=== PATIENT | female | born 1960 | race Caucasian/White ===

== ENCOUNTER 2018-08-31 16:54 | Observation (INO) ==
[2018-08-31] MEDS ORDERED: ALBUTEROL SULFATE/IPRATROPIUM 3 ML NEBU IH ONE ×2 (17:00→17:03)
[2018-08-31] MEDS ORDERED: METHYLPREDNISOLONE SOD SUCC/PF 40 MG/ML VIAL IV ONE (17:03)
[2018-08-31] MEDS ORDERED: METHYLPREDNISOLONE SOD SUCC/PF 125 MG/2 ML VIAL ONE (17:09)
[2018-08-31 17:19] LABS: Hematocrit 37.9 % (37.0-47.0); Hemoglobin 12.4 gm/dL (12.5-16.0); Mean Cell Volume 87.7 fl (78-100); Mean Corpuscular Hemoglobin 28.7 pg (27-31); Mean Corpuscular Hgb Conc 32.7 g/dl (32-36); Mean Platelet Volume 9.1 fl (8-12.5); Neutrophil # 6.3 K/mm3 (1.3-6.0); Neutrophil % 66.6 % (42-75.0); Platelet Count 328 K/mm3 (150-450); Red Blood Count 4.32 M/mm3 (4.2-5.4); Red Cell Distribution Width 13.6 % (11.5-14.0); White Blood Count 9.5 K/mm3 (4.0-10.5)
[2018-08-31 17:54] LABS: ALT 19 U/L (19-67); AST 15 U/L (0-48); Albumin * 3.2 gm/dl (3.4-5.0); Alkaline Phosphatase * 90 U/L (50-170); Anion Gap 10.2 mmol/L (6.8-13.8); BNP * 450 pg/mL (5-205); BUN/Creatinine Ratio 13.7 (9.0-21.6); Bilirubin, Total 0.2 mg/dL (0.0-1.1); Blood Urea Nitrogen 13 mg/dL (3-23); Calcium * 8.7 mg/dL (7.9-10.9); Carbon Dioxide 32.1 mmol/L (24-32.6); Chloride 102 mmol/L (97-106); Glucose * 113 mg/dL (70-110); Magnesium 2.2 mg/dL (1.2-2.8); Potassium 4.3 mmol/L (3.4-4.6); Sodium 140 mmol/L (132-142); Total Protein 7.2 gm/dL (6.2-8.2); Troponin I Less than 0.017 ng/mL (0.00-0.10)
--- NOTE | 2018-08-31 18:16 | ERNOTE ---
Time Seen by Provider: 08/31/18 17:00 Stated Complaint: COUGH, BODY ACHES Presenting Symptoms:: cough, other - SOB Source: patient Exam Limitations: no limitations Immunizations: IMMUNIZATION HX Immunizations Up to Date Yes History of Influenza Vaccine No Allergies/Adverse Reactions: Allergies codeine Adverse Reaction (Mild, Verified 08/31/18 17:07) gi upset Home Medications: HOME MEDICATIONS aspirin 81 mg tablet,delayed release 81 mg PO DAILY 06/25/18 [Last Taken Unknown] budesonide-formoterol HFA 160 mcg-4.5 mcg/actuation aerosol inhaler 2 puff IH Q12H 06/25/18 [Last Taken Unknown] trazodone 100 mg tablet 100 mg PO HS tab 06/25/18 [Last Taken Unknown] albuterol sulfate HFA 90 mcg/actuation aerosol inhaler See Rx Instructions IH .COMPLEX PRN #18 g 07/21/18 [Last Taken Unknown] etodolac 400 mg tablet 400 mg PO BID #60 tab 07/22/18 [Last Taken Unknown] tiotropium bromide 18 mcg capsule with inhalation device 1 cap IH DAILY #30 inh 07/23/18 [Last Taken Unknown] - History of Present Ilness Narrative: Patient presents with progressive shortness of breath with wheezing and cough. She states this started 24-48 hours ago and at this point she rates it as being severe and she is having enormous difficulty catching her breath. Timing: getting worse Severity: severe Frequency/Possible Cause: Reports: occasional episodes Modifying Factors - Improves: Reports: nothing Modifying Factors - Worsens: Reports: other - Smoking Associated Symptoms: Reports: cough, shortness of breath, wheezing Review of Systems - Review of Systems Constitutional: Present: See HPI EYE: Present: no symptoms reported ENT: Present: no symptoms reported Respiratory: Present: See HPI Cardiology: Present: no symptoms reported Gastrointestinal/Abdominal: Present: no symptoms reported Genitourinary: Present: no symptoms reported Musculoskeletal: Present: no symptoms reported Skin: Present: no symptoms reported Neurological: Present: no symptoms reported Endocrine: Present: no symptoms reported Hematologic/Lymphatic: Present: no symptoms reported Psych: Present: no symptoms reported Medical History (Last Reviewed 08/31/18 @ 17:08 by Nova Cox RN) Elevated C-reactive protein (CRP) (Chronic) Elevated sed rate (Chronic) Headache disorder (Chronic) Onset Date: Unknown Tobacco abuse (Chronic) Onset Date: Unknown COPD (chronic obstructive pulmonary disease) (Chronic) Onset Date: Unknown Back pain (Chronic) Onset Date: Unknown Anxiety (Chronic) Onset Date: Unknown Depression (Chronic) Onset Date: Unknown Stress incontinence Onset Date: Unknown Surgical History: Surgical History (Last Reviewed 08/31/18 @ 17:08 by Nova Cox RN) H/O tubal ligation Onset Date: ~1988 Family History: Family History (Last Reviewed 08/31/18 @ 17:08 by Nova Cox RN) Mother Cancer melanoma Father , age 70's DVT (deep venous thrombosis) Alcoholism Varicose veins of both lower extremities Social History: Preferred Language Pashto Do you have any sabianism or No cultural preference? Smoking Status Current some day smoker Alcohol Use none Drug Use none (Last Updated 07/21/18 @ 11:18 by Rogelio Hussein DO) No Social History Section defined Physical Exam - Physical Exam General Appearance: Present: wd/wn, alert, severe distress Head Exam: Present: normal inspection, no evidence of injury Eye Exam: Normal inspection: bilateral, PERRL: bilateral Ears, Nose, Throat: Present: normal ENT inspection, H, normal pharynx Neck: Present: normal inspection, nontender Respiratory: Present: chest nontender, respiratory distress, accessory muscle use, rales - Right middle and right lower lobe, wheezing Cardiovascular/Chest: Present: no murmur, normal peripheral pulses, tachycardia Gastrointestinal/Abdominal: Present: normal bowel sounds, nontender, nondistended, soft, no organomegaly Rectal Exam: Present: deferred Back Exam: Present: normal inspection, normal range of motion Extremity Exam: Present: normal inspection, non-tender, no edema, normal range of motion Neurological Exam: Present: alert, oriented, normal mood/affect Skin Exam: Present: normal color, warm/dry Lymphatic Exam: Present: no adenopathy ED Progress - Results and Orders Patient's Lab Results:: I have reviewed the patient's lab results. - Vital Signs Patient's Vital Signs:: I have reviewed the patient's vital signs. Vital Signs: Vital Signs 08/31/18 17:04 08/31/18 17:09 08/31/18 17:32 Temperature 36.5 C Pulse Rate 133 H 104 H 99 Respiratory Rate 25 H 20 Blood Pressure 189/70 H O2 Sat by Pulse Oximetry 80 L 92 L - EKG EKG: other - Sinus tachycardia EKG read: Reviewed by me - X-Ray X-Ray #1 X-Ray: chest Interpretation: Reviewed by me - Progress/Reassessment Chief Complaint: Upper Respiratory Symptoms Progress:: Re-examined Progress Note-Subjective: 08/31/18 18:14 Patient is marginally improved as long as we keep her on oxygen. Plan - Plan Plan: I discussed the case with the patient as well as Dr. Bonilla and we all agreed that the patient needs to be admitted for IV antibiotics and relatively aggressive pulmonary toilet. Departure Clinical Impression: Hypoxia Pneumonia Qualifiers: Pneumonia type: due to unspecified organism Laterality: right Lung location: lower lobe of lung Qualified Code(s): J18.1 - Lobar pneumonia, unspecified organism - Departure Disposition: Still a patient Condition: Fair
[2018-08-31] MEDS ORDERED: ALBUTEROL SULFATE 2.5 MG/0.5 ML VIAL.NEB IH ONE ×2 (18:18→19:27)
[2018-08-31] MEDS ORDERED: IBUPROFEN 800 MG TABLET PO ONE (18:30)
[2018-08-31] MEDS ORDERED: IBUPROFEN 400 MG TABLET ONE (18:31)
[2018-08-31] MEDS ORDERED: ALBUTEROL SULFATE/IPRATROPIUM 3 ML NEBU IH PRN (19:29)
--- NOTE | 2018-08-31 19:32 | HP ---
Chief Complaint - Chief Complaint Date of Service: 08/31/18 Time of Service: 19:11 Chief Complaint: shortness of breath History of Present Illness: Patient with PMHx of COPD presented to the ED today with shortness of breath and cough for a few days. She doesn't think she has had fevers, but hasn't checked her temp. She has a productive cough at baseline, but it has been productive of green sputum the past couple of days. She has felt nauseated and her appetite decreased. She has wheezing at baseline, but that is increased currently. In the ED, her work of breathing improved with oxygen. She does not use oxygen at baseline, and has never been hospitalized for her breathing. Denies chest pain and lower extremity swelling. Medical History (Last Reviewed 08/31/18 @ 17:08 by Nova Cox RN) Elevated C-reactive protein (CRP) (Chronic) Elevated sed rate (Chronic) Headache disorder (Chronic) Onset Date: Unknown Tobacco abuse (Chronic) Onset Date: Unknown COPD (chronic obstructive pulmonary disease) (Chronic) Onset Date: Unknown Back pain (Chronic) Onset Date: Unknown Anxiety (Chronic) Onset Date: Unknown Depression (Chronic) Onset Date: Unknown Stress incontinence Onset Date: Unknown Surgical History: Surgical History (Last Reviewed 08/31/18 @ 17:08 by Nova Cox RN) H/O tubal ligation Onset Date: ~1988 Family History: Family History (Last Reviewed 08/31/18 @ 17:08 by Nova Cox RN) Mother Cancer melanoma Father , age 70's DVT (deep venous thrombosis) Alcoholism Varicose veins of both lower extremities Social History: Preferred Language Afghan Do you have any temple or No cultural preference? Smoking Status Current some day smoker Alcohol Use none Drug Use none (Last Updated 07/21/18 @ 11:18 by Rogelio Hussein DO) No Social History Section defined Review Of Systems (GEN) - Review of Systems Generalized/Overall Review: Absent: Fever Respiratory: Present: Cough, Shortness of Breath, Wheezing Cardiac: Absent: Chest Pain, Edema, Syncope Abdominal: Present: Nausea, Other - loose stools today. Absent: Vomiting Genitourinary: Present: Other - incontinence with cough. Absent: Burning, Urgency Skin: Present: No Symptoms Reported Immunizations: IMMUNIZATION HX Immunizations Up to Date Yes History of Influenza Vaccine No Allergies/Adverse Reactions: Allergies Allergy/AdvReac Type Severity Reaction Status Date / Time codeine AdvReac Mild gi upset Verified 08/31/18 17:07 Home Medications: HOME MEDICATIONS aspirin 81 mg tablet,delayed release 81 mg PO DAILY 06/25/18 [Last Taken Unknown] budesonide-formoterol HFA 160 mcg-4.5 mcg/actuation aerosol inhaler 2 puff IH Q12H 06/25/18 [Last Taken Unknown] trazodone 100 mg tablet 100 mg PO HS tab 06/25/18 [Last Taken Unknown] albuterol sulfate HFA 90 mcg/actuation aerosol inhaler See Rx Instructions IH .COMPLEX PRN #18 g 07/21/18 [Last Taken Unknown] etodolac 400 mg tablet 400 mg PO BID #60 tab 07/22/18 [Last Taken Unknown] tiotropium bromide 18 mcg capsule with inhalation device 1 cap IH DAILY #30 inh 07/23/18 [Last Taken Unknown] Vortioxetine Hydrobromide [Trintellix] 20 mg PO DAILY 08/31/18 [Last Taken 08/31/18 09:00 20mg] Exam - Exam Vital Signs: Vital Signs - Last Taken Temp 36.5 C 08/31/18 17:04 Pulse 99 08/31/18 18:00 Resp 21 H 08/31/18 18:00 BP 164/86 H 08/31/18 18:00 Pulse Ox 92 L 08/31/18 18:00 Constitutional: Present: Oriented x3, Cooperative Respiratory: Present: decreased breath sounds, accessory muscle use - mild increased work of breathing, wheezing Cardiovascular/Chest: Present: regular rate, rhythm, no edema Peripheral Pulses: radial (R): 2+ Abdomen: Present: Normal bowel sounds, soft, nontender Extremity: Absent: lower extremity edema Appearance: Present: appropriate appearance, appropriate insight Eye contact: Present: cooperative Diagnostic Studies: Abnormal Lab Results 08/31/18 08/31/18 08/31/18 Range/Units 17:02 17:10 17:10 Hgb 12.4 L (12.5-16.0) gm/dL Immature Gran % (Auto) 1.10 H (0.001-0.429) % Immature Gran # (Auto) 0.10 H (0.000-0.0310) K/mm3 Neutrophils # 6.3 H (1.3-6.0) K/mm3 pO2 63.0 L (83.0-108.0) mmHg Total CO2 28.3 H (19.0-24.0) mmol/L Base Excess 3.6 H (-2.0-3.0) mmol/L ABG pH 7.48 H (7.35-7.45) ABG O2 Sat (Measured) 93.6 L (94.0-98.0) % Random Glucose 113 H (70-110) mg/dL B-Natriuretic Peptide 450 H (5-205) pg/mL Albumin 3.2 L (3.4-5.0) gm/dl Laboratory Results WBC 9.5 K/mm3 (4.0-10.5) 08/31/18 17:10 RBC 4.32 M/mm3 (4.2-5.4) 08/31/18 17:10 Hgb 12.4 gm/dL (12.5-16.0) L 08/31/18 17:10 Hct 37.9 % (37.0-47.0) 08/31/18 17:10 MCV 87.7 fl (78-100) 08/31/18 17:10 MCH 28.7 pg (27-31) 08/31/18 17:10 MCHC 32.7 g/dl (32-36) 08/31/18 17:10 RDW 13.6 % (11.5-14.0) 08/31/18 17:10 Plt Count 328 K/mm3 (150-450) 08/31/18 17:10 MPV 9.1 fl (8-12.5) 08/31/18 17:10 Immature Gran % (Auto) 1.10 % (0.001-0.429) H 08/31/18 17:10 Immature Gran # (Auto) 0.10 K/mm3 (0.000-0.0310) H 08/31/18 17:10 Neutrophils % 66.6 % (42-75.0) 08/31/18 17:10 Lymphocytes % 22.6 % (20-51) 08/31/18 17:10 Monocytes % 7.2 % (0.0-9) 08/31/18 17:10 Eosinophils % 2.2 % (0.0-3.0) 08/31/18 17:10 Basophils % 0.3 % (0.0-1.0) 08/31/18 17:10 Nucleated RBC % 0.0 k/mm3 (0-1) 08/31/18 17:10 Neutrophils # 6.3 K/mm3 (1.3-6.0) H 08/31/18 17:10 Lymphocytes # 2.14 k/mm3 (1.5-3.5) 08/31/18 17:10 Monocytes # 0.7 k/mm3 (0.0-1.0) 08/31/18 17:10 Eosinophils # 0.2 k/mm3 (0.0-0.7) 08/31/18 17:10 Absolute Basophils 0.0 k/mm3 (0.0-0.1) 08/31/18 17:10 pCO2 37.6 mmHg (32.0-45.0) 08/31/18 17:02 pO2 63.0 mmHg (83.0-108.0) L 08/31/18 17:02 HCO3 27.2 mmol/L (21.0-28.0) 08/31/18 17:02 Total CO2 28.3 mmol/L (19.0-24.0) H 08/31/18 17:02 Base Excess 3.6 mmol/L (-2.0-3.0) H 08/31/18 17:02 ABG pH 7.48 (7.35-7.45) H 08/31/18 17:02 ABG O2 Sat (Measured) 93.6 % (94.0-98.0) L 08/31/18 17:02 Sodium 140 mmol/L (132-142) 08/31/18 17:10 Plasma Sodium 140 mmol/L (130-142) 08/31/18 17:10 Potassium 4.3 mmol/L (3.4-4.6) 08/31/18 17:10 Chloride 102 mmol/L (97-106) 08/31/18 17:10 Carbon Dioxide 32.1 mmol/L (24-32.6) 08/31/18 17:10 Anion Gap 10.2 mmol/L (6.8-13.8) 08/31/18 17:10 BUN 13 mg/dL (3-23) 08/31/18 17:10 Creatinine 0.95 mg/dL (0.4-1.4) 08/31/18 17:10 Est GFR (Non-Af Amer) 64 mL/min (60-130) 08/31/18 17:10 BUN/Creatinine Ratio 13.7 (9.0-21.6) 08/31/18 17:10 Random Glucose 113 mg/dL (70-110) H 08/31/18 17:10 Calcium 8.7 mg/dL (7.9-10.9) 08/31/18 17:10 Calcium Adj for Albumin 9.0 mg/dL (8.4-10.2) 08/31/18 17:10 Magnesium 2.2 mg/dL (1.2-2.8) 08/31/18 17:10 Total Bilirubin 0.2 mg/dL (0.0-1.1) 08/31/18 17:10 AST 15 U/L (0-48) 08/31/18 17:10 ALT 19 U/L (19-67) 08/31/18 17:10 Alkaline Phosphatase 90 U/L (50-170) 08/31/18 17:10 Troponin I Less than 0.017 ng/mL (0.00-0.10) 08/31/18 17:10 B-Natriuretic Peptide 450 pg/mL (5-205) H 08/31/18 17:10 Total Protein 7.2 gm/dL (6.2-8.2) 08/31/18 17:10 Albumin 3.2 gm/dl (3.4-5.0) L 08/31/18 17:10 Assessment/Plan - Assessment/Plan (1) Shortness of breath Assessment: Ddx includes COPD exacerbation, pneumonia. COPDe most likely. She is afebrile, and WBC not elevated. Official CXR read pending, but pneumonia possible. Rocephin and azithromycin started in the ED, and will continue. She received a dose of 125 mg solumedrol. PRN duoneb treatments q4h prn. Will also continue her home spiriva and symbicort. Discussed the importance of tobacco cessation. She is oxygenating in the low 90's on 2L via [place], and will wean as tolerated. Problem: Acute (2) Anxiety Assessment: Continue home trintellix. Problem: Chronic (3) Depression Assessment: Continue home trintellix and trazodone. Problem: Chronic (4) Back pain Assessment: Continue patient's home etodolac. Problem: Chronic Qualifiers: (5) Dry eye Assessment: OK for patient to use home eye drops. Problem: Chronic
[2018-08-31] MEDS ORDERED: AZITHROMYCIN 250 MG TABLET PO ONE (20:30)
[2018-08-31] MEDS ORDERED: traZODone HCL 50 MG TABLET PO SCH (21:00)
[2018-08-31] MEDS: FLUTICASONE/SALMETEROL 14 PUFF DISK.W.DEV IH SCH (21:45)
[2018-09-01] MEDS ORDERED: ACETAMINOPHEN 325 MG TABLET PO PRN (05:36)
[2018-09-01] MEDS ORDERED: ALBUTEROL SULFATE 2.5 MG/0.5 ML VIAL.NEB IH PRN (06:29)
[2018-09-01] MEDS: FLUTICASONE/SALMETEROL 14 PUFF DISK.W.DEV IH SCH (08:40)
[2018-09-01] MEDS ORDERED: TIOTROPIUM BROMIDE 5 CAP INHALER IH SCH (09:00)
[2018-09-01] MEDS ORDERED: AZITHROMYCIN 250 MG TABLET PO SCH (09:00)
[2018-09-01] MEDS ORDERED: NICOTINE 21 MG PATC TD SCH (09:45)
--- NOTE | 2018-09-01 13:02 | DS ---
(1) Pneumonia Problem: Acute Qualifiers: Pneumonia type: due to unspecified organism Laterality: right Lung location: lower lobe of lung Qualified Code(s): J18.1 - Lobar pneumonia, unspecified organism (2) Hypoxia Problem: Resolved (3) Tobacco abuse Problem: Chronic (4) COPD (chronic obstructive pulmonary disease) Problem: Chronic Qualifiers: Emphysema type: panlobular Description of Stay: Leslie Colón is a 58-year-old female who was admitted through the emergency room because of respiratory distress. The chest x-ray shows bilateral perihilar infiltrates. She has a productive green sputum. She required oxygen in the emergency room and because there were not able to improve her oxygenation in the ER she was admitted for observation status. Mrs. Colón has a baseline of advanced COPD. She was started on IV Rocephin, oral azithromycin, and IV Solu-Medrol. This morning she is considerably improved although still coughing and gets dyspneic with exertion. She was walked in the [place] with no supplemental oxygen and her saturations stayed between 93 and 97%. Her admission lab showed a normal white count and differential and chemistries were unremarkable. Her PCO2 was 28. She was also started on a nicotine 21 g per hour patch today. She is instructed that she cannot smoke and wear the patch as it is too dangerous. She expresses understanding. She is breathing easier at noon today and feels that she can go home. Her disposition is improved. Her prognosis is fair. She will be discharged to finish her Zithromax for 4 more days, Ceftin twice a day for 10 more days, and prednisone 10 mg per tapering schedule. She is to follow with me in the office in 2 weeks. Procedures Performed: none Results and Findings: Lab Pending Results 08/31/18 17:02: pCO2 37.6, pO2 63.0 L, HCO3 27.2, Total CO2 28.3 H, Base Excess 3.6 H, ABG pH 7.48 H, ABG O2 Sat (Measured) 93.6 L 08/31/18 17:10: WBC 9.5, RBC 4.32, Hgb 12.4 L, Hct 37.9, MCV 87.7, MCH 28.7, MCHC 32.7, RDW 13.6, Plt Count 328, MPV 9.1, Immature Gran % (Auto) 1.10 H, Immature Gran # (Auto) 0.10 H, Neutrophils % 66.6, Lymphocytes % 22.6, Monocytes % 7.2, Eosinophils % 2.2, Basophils % 0.3, Nucleated RBC % 0.0, Neutrophils # 6.3 H, Lymphocytes # 2.14, Monocytes # 0.7, Eosinophils # 0.2, Absolute Basophils 0.0 08/31/18 17:10: Sodium 140, Plasma Sodium 140, Potassium 4.3, Chloride 102, Carbon Dioxide 32.1, Anion Gap 10.2, BUN 13, Creatinine 0.95, Est GFR (Non-Af Amer) 64, BUN/Creatinine Ratio 13.7, Random Glucose 113 H, Calcium 8.7, Calcium Adj for Albumin 9.0, Magnesium 2.2, Total Bilirubin 0.2, AST 15, ALT 19, Alkaline Phosphatase 90, Troponin I Less than 0.017, B-Natriuretic Peptide 450 H, Total Protein 7.2, Albumin 3.2 L Discharge Location: Home Disposition: Home self-care Condition: Fair Face to Face Encounter completed per [facility] Guidelines: No Discharge Activity: Activity as tolerated Discharge Diet: General/regular food Referrals: Rogelio Hussein DO [Primary Care Provider] - Problem Oriented Discharge Instructions to Patient/Family: Community-Acquired Pneumonia, Adult, [id number] Additional Patient Instructions (free text): Discontinue smoking and stay out of secondary smoke. Use the nicotine patches to stop smoking but do not smoke and wear the patch. Return to the emergency room if respiratory distress reoccurs. F/U with FridaySeptember 07 @ 3:30 pm. Prescriptions (Any new or edited meds): Azithromycin [Zithromax] 250 mg PO DAILY #4 tablet Cefuroxime Axetil [Ceftin] 500 mg PO BID #20 tab predniSONE [Prednisone] 2 tab PO BID #30 tab Complete Home Medications List: Complete Home Medication List: aspirin 81 mg tablet,delayed release 81 mg PO DAILY 06/25/18 budesonide-formoterol HFA 160 mcg-4.5 mcg/actuation aerosol inhaler 2 puff IH Q12H 06/25/18 trazodone 100 mg tablet 100 mg PO HS tab 06/25/18 albuterol sulfate HFA 90 mcg/actuation aerosol inhaler See Rx Instructions IH .COMPLEX PRN #18 g 07/21/18 etodolac 400 mg tablet 400 mg PO BID #60 tab 07/22/18 tiotropium bromide 18 mcg capsule with inhalation device 1 cap IH DAILY #30 inh 07/23/18 Vortioxetine Hydrobromide [Trintellix] 20 mg PO DAILY 08/31/18 Acetaminophen [Tylenol] 325 mg PO Q6H PRN tablet 09/01/18 Albuterol Sulfate [Albuterol Sulfate 2.5 MG/0.5ML] 2.5 mg IH Q4H PRN vial.neb 09/01/18 Azithromycin [Zithromax] 250 mg PO DAILY tablet 09/01/18 Azithromycin [Zithromax] 250 mg PO DAILY #4 tablet 09/01/18 Cefuroxime Axetil [Ceftin] 500 mg PO BID #20 tab 09/01/18 Nicotine [Nicoderm] 21 mg TD Q24H patch.td24 09/01/18 predniSONE [Prednisone] 2 tab PO BID #30 tab 09/01/18
[2018-09-01 14:49] VITALS: BP 158/72
[2018-09-01] MEDS ORDERED: FLUTICASONE/SALMETEROL 14 PUFF DISK.W.DEV IH SCH (21:00)
== END 2018-09-01 15:08 | disposition home or self-care (01) ==
LOC: MS 16:54 → ER 16:54 → MS 18:56
PROVIDERS: ADMIT Family Medicine; ATTEND Family Medicine
DX: J17 Pneumonia in diseases classified elsewhere; H04.123 Dry eye syndrome of bilateral lacrimal glands; F17.210 Nicotine dependence, cigarettes, uncomplicated; M54.9 Dorsalgia, unspecified; R09.02 Hypoxemia; J44.1 Chronic obstructive pulmonary disease with (acute) exacerbation; F41.8 Other specified anxiety disorders; J18.1 Lobar pneumonia, unspecified organism
CPT/HCPCS: 36415; 36600; 71020; 71046; 80053; 82803; 83519; 83735; 83880; 84484; 85025; 87040; 93005; 94640; 94664; 96365; 96375; 99285; G0378

== ENCOUNTER 2019-02-03 09:37 | Observation (INO) ==
[2019-02-03] MEDS ORDERED: METHYLPREDNISOLONE SOD SUCC/PF 125 MG/2 ML VIAL IV ONE (09:51)
[2019-02-03] MEDS ORDERED: ALBUTEROL SULFATE 2.5 MG/0.5 ML VIAL.NEB IH ONE (09:51)
--- NOTE | 2019-02-03 09:52 | ERNOTE ---
Dyspnea - General Presenting Symptoms: shortness of breath Time Seen by Provider: 02/03/19 09:40 Source: patient Exam Limitations: no limitations - Immun/Allergies/Home Medications Immunizations: IMMUNIZATION HX Immunizations Up to Date Yes History of Influenza Vaccine No Allergies/Adverse Reactions: Allergies codeine Adverse Reaction (Mild, Verified 02/03/19 09:55) gi upset Home Medications: HOME MEDICATIONS aspirin 81 mg tablet,delayed release 81 mg PO DAILY 06/25/18 [Last Taken Unknown] albuterol sulfate HFA 90 mcg/actuation aerosol inhaler See Rx Instructions IH .COMPLEX PRN #18 g 07/21/18 [Last Taken Unknown] Acetaminophen [Tylenol] 325 mg PO Q6H PRN tab 09/01/18 [Last Taken Unknown] Albuterol Sulfate [Albuterol Sulfate 2.5 MG/0.5ML] 2.5 mg INHALATION Q4H PRN vial.neb 09/01/18 [Last Taken Unknown] budesonide-formoterol HFA 160 mcg-4.5 mcg/actuation aerosol inhaler 2 puff IH Q12H #10.2 g 09/09/18 [Last Taken Unknown] vortioxetine 20 mg tablet 20 mg PO DAILY #30 tab 10/02/18 [Last Taken Unknown] etodolac 400 mg tablet 400 mg PO BID #60 tab 11/30/18 [Last Taken Unknown] aripiprazole 10 mg tablet 10 mg PO DAILY #30 tab 12/22/18 [Last Taken Unknown] tiotropium bromide 18 mcg capsule with inhalation device 1 cap IH DAILY #30 inh 01/27/19 [Last Taken Unknown] eszopiclone 1 mg tablet 1 mg PO HS #14 tab 01/28/19 [Last Taken Unknown] - History of Present Illness Narrative: Patient has a history of COPD, used to smoke 3ppd (recently cut down to 1packer per week) over the last three weeks she has had increasing shortness of breath and cough with green sputum, no chest pain, initial fever and chills She was seen in the PCP office, initial O2 sat in mid 70's, received a breathing treatment and was send to the ER, initial O2sats here 81% Severity: moderate Treatment PHYSICAL THERAPY TECHNICIAN: by patient, albuterol - MDI only Initiating event: Reports: upper resp illness. Denies: out of meds, exposure to smoke Frequency of episodes: Reports: occassional episodes Modifying Factors - (Improves): Reports: rest Modifying Factors (Worsens): Reports: activity Associated Symptoms-Dyspnea: Reports: fever/chills, cough, wheezing. Denies: chest pain/discomfort Prior Treatment: Denies: recently seen, currently on antibiotics Review of Systems - Review of Systems Constitutional: Present: fever, chills, malaise ENT: Absent: nose congestion, sore throat Respiratory: Present: shortness of breath, cough Cardiology: Absent: chest pain Gastrointestinal/Abdominal: Absent: nausea, vomiting, abdominal pain Genitourinary: Present: no symptoms reported Musculoskeletal: Absent: back pain Skin: Absent: rash Neurological: Absent: headache Medical History (Last Reviewed 02/03/19 @ 11:20 by Chanell Jackson MD) Insomnia disorder, with non-sleep disorder mental comorbidity, persistent (Chronic) Oral candidiasis (Acute) COPD (chronic obstructive pulmonary disease) with acute bronchitis (Chronic) Major depressive disorder, recurrent episode, moderate (Acute) Low back pain (Acute) Leg pain, left (Acute) Elevated C-reactive protein (CRP) (Chronic) Elevated sed rate (Chronic) Headache disorder (Chronic) Onset Date: Unknown Tobacco abuse (Chronic) Onset Date: Unknown COPD (chronic obstructive pulmonary disease) (Chronic) Onset Date: Unknown Back pain (Chronic) Onset Date: Unknown Anxiety (Chronic) Onset Date: Unknown Depression (Chronic) Onset Date: Unknown Stress incontinence Onset Date: Unknown Surgical History: Surgical History (Last Reviewed 02/03/19 @ 11:20 by Chanell Jackson MD) H/O tubal ligation Onset Date: ~1988 Family History: Family History (Last Reviewed 02/03/19 @ 09:29 by Mini Ashley LPN) Mother Cancer melanoma Father , age 70's DVT (deep venous thrombosis) Alcoholism Varicose veins of both lower extremities Social History: Preferred Language Kinyarwanda Smoking Status Current every day smoker (Last Reviewed 02/03/19 @ 09:29 by Mini Ashley LPN) No Social History Section defined Physical Exam - Physical Exam General Appearance: Present: wd/wn, alert, mild distress Eye Exam: Normal inspection: bilateral Ears, Nose, Throat: Present: normal pharynx Neck: Absent: lymphadenopathy (R), lymphadenopathy (L) Respiratory: Present: respiratory distress - increased effort, decreased breath sounds - severely decreased, expiration (prolonged), wheezing Cardiovascular/Chest: Present: regular rate, rhythm, no murmur Gastrointestinal/Abdominal: Present: nontender, nondistended, soft Extremity Exam: Present: no edema Neurological Exam: Present: alert, oriented, normal mood/affect Skin Exam: Present: normal color, warm/dry Progress - Results and Orders Patient's Lab Results:: I have reviewed the patient's lab results. - Vital Signs Patient's Vital Signs:: I have reviewed the patient's vital signs. - EKG EKG #1 EKG: NSR, other - occasional PVCs EKG read: Interp. by me - X-Ray X-Ray #1 X-Ray: chest - hyperinflated, no acute Interpretation: Reviewed by me - Progress/Reassessment Progress Note-Subjective: 02/03/19 10:33 discussed lab results, feels better on O2 02/03/19 11:01 patient feeling better with oxygen and after second neb treatment 02/03/19 11:12 discussed with nighat Powell to admit for observation, start rocephin and zithromas Departure Clinical Impression: COPD exacerbation, Hypoxemia - Departure Disposition: Still a patient Condition: Stable
[2019-02-03 10:10] LABS: Hematocrit 38.7 % (37.0-47.0); Hemoglobin 12.6 gm/dL (12.5-16.0); Mean Corpuscular Hgb Conc 32.6 g/dl (32-36); Mean Platelet Volume 9.8 fl (8-12.5); Neutrophil # 9.6 K/mm3 (1.3-6.0); Neutrophil % 80.9 % (42-75.0); Platelet Count 315 K/mm3 (150-450); Red Blood Count 4.35 M/mm3 (4.2-5.4); Red Cell Distribution Width 12.7 % (11.5-14.0); White Blood Count 11.8 K/mm3 (4.0-10.5)
[2019-02-03 10:22] LABS: Troponin I Less than 0.017 ng/mL (0.00-0.10)
[2019-02-03 10:23] LABS: ALT 33 U/L (19-67); AST 21 U/L (0-48); Albumin * 3.1 gm/dl (3.4-5.0); Alkaline Phosphatase * 130 U/L (50-170); Anion Gap 12.3 mmol/L (6.8-13.8); BNP * 170 pg/mL (5-205); Bilirubin, Total 0.3 mg/dL (0.0-1.1); Blood Urea Nitrogen 7 mg/dL (3-23); Ca. Corrected For Albumin 9.4 mg/dL (8.4-10.2); Carbon Dioxide 31.6 mmol/L (24-32.6); Chloride 98 mmol/L (97-106); Glucose * 161 mg/dL (70-110); Potassium 3.9 mmol/L (3.4-4.6); Sodium 138 mmol/L (132-142); Total Protein 7.5 gm/dL (6.2-8.2)
[2019-02-03] MEDS ORDERED: ALBUTEROL SULFATE 2.5 MG/0.5 ML VIAL.NEB IH PRN (11:21)
[2019-02-03] MEDS ORDERED: DEXTROSE 5 % IN WATER 100 ML BAG IV ONE (11:56)
[2019-02-03] MEDS: AZITHROMYCIN 250 MG TABLET PO SCH (11:58)
[2019-02-03] MEDS ORDERED: ACETAMINOPHEN 325 MG TABLET PO PRN (13:15)
[2019-02-03] MEDS ORDERED: ALBUTEROL SULFATE 200 PUFF INHALER IH PRN (13:16)
[2019-02-03] MEDS ORDERED: ALBUTEROL SULFATE/IPRATROPIUM 3 ML NEBU IH ONE (13:58)
[2019-02-03] MEDS: ALBUTEROL SULFATE 2.5 MG/0.5 ML VIAL.NEB IH PRN (14:14)
[2019-02-03] MEDS: ALBUTEROL SULFATE/IPRATROPIUM 3 ML NEBU IH SCH ×2 (14:14→18:05)
[2019-02-03 14:21] LABS: Urine Bilirubin Negative (NEGATIVE); Urine Blood 25 /ul (NEGATIVE); Urine Ketone Negative (NEGATIVE); Urine Nitrite Negative (NEGATIVE); Urine Protein Negative (NEGATIVE); Urine Urobilinogen Normal (NORMAL)
[2019-02-03 14:29] LABS: Urine Appearance Clear (CLEAR); Urine Color Yellow
[2019-02-03 14:30] LABS: Urine Bacteria None Seen; Urine RBC None Seen /hpf (0-5); Urine WBC TRACE /hpf (0-5)
[2019-02-03] MEDS: ASPIRIN 81 MG TABLET.DR PO SCH (15:07)
[2019-02-03] MEDS: ARIPiprazole 10 MG TABLET PO SCH (15:07)
[2019-02-03] MEDS: TIOTROPIUM BROMIDE 5 CAP INHALER IH SCH (15:09)
[2019-02-03] MEDS: BUDESONIDE 0.5 MG/2 ML VIAL.NEB IH SCH (18:06)
[2019-02-03] MEDS: FORMOTEROL FUMARATE 20 MCG/2 ML VIAL IH SCH (18:07)
[2019-02-03] MEDS: BENZONATATE 100 MG CAPSULE PO PRN (18:54)
--- NOTE | 2019-02-03 19:43 | HP ---
Chief Complaint - Chief Complaint Date of Service: 02/03/19 Time of Service: 12:00 Chief Complaint: Shortness of breath, hypoxemia History of Present Illness: Mrs. Colón is a 58-year-old female with a long-standing history of COPD and nicotine abuse. She presented to my office this morning very labored breathing and ashen in color with O2 saturation of 71% on room air. I gave her an albuterol nebulizer treatment and improved her oxygen saturation to 81%. She was then taken via wheelchair to the emergency room where she was cared for by Dr. Wright and was subsequently admitted to the hospital. The workup in the emergency room included a chest x-ray which did not show any evidence of pneumonia or congestive failure. Her blood count is essentially normal. This appears to be an acute exacerbation of COPD with moderate hypoxemia. She has had IV steroids, IV antibiotics, and another breathing treatment and placed on oxygen at 2 L nasal cannula. Her blood gases were normal. The patient was much more comfortable by noon when she was admitted to the medical floor. She was able to speak in full sentences again and was able to eat her lunch. She has continued to do well this afternoon. She does not have home oxygen and does not have a nebulizer at home. Medical History (Last Reviewed 02/03/19 @ 12:38 by Clarissa Ling RN) Insomnia disorder, with non-sleep disorder mental comorbidity, persistent (Chronic) Oral candidiasis (Acute) COPD (chronic obstructive pulmonary disease) with acute bronchitis (Chronic) Major depressive disorder, recurrent episode, moderate (Acute) Low back pain (Acute) Leg pain, left (Acute) Elevated C-reactive protein (CRP) (Chronic) Elevated sed rate (Chronic) Headache disorder (Chronic) Onset Date: Unknown Tobacco abuse (Chronic) Onset Date: Unknown COPD (chronic obstructive pulmonary disease) (Chronic) Onset Date: Unknown Back pain (Chronic) Onset Date: Unknown Anxiety (Chronic) Onset Date: Unknown Depression (Chronic) Onset Date: Unknown Stress incontinence Onset Date: Unknown Surgical History: Surgical History (Last Reviewed 02/03/19 @ 12:38 by Clarissa Ling RN) H/O tubal ligation Onset Date: ~1988 Family History: Family History (Last Reviewed 02/03/19 @ 12:38 by Clarissa Ling RN) Mother Cancer melanoma Father , age 70's DVT (deep venous thrombosis) Alcoholism Varicose veins of both lower extremities Social History: Patient Lives/Resources Home Utilized Preferred Language Kazakh Do you have any gnosticism or No cultural preference? Smoking Status Current every day smoker Have you smoked in the past 12 Yes months Alcohol Use none (Last Updated 02/03/19 @ 17:56 by Rogelio Hussein DO) No Social History Section defined Review Of Systems (GEN) - Review of Systems Generalized/Overall Review: Present: Weakness, Fever, Malaise, Fatigue. Absent: Chills EENTM: Present: No Symptoms Reported Respiratory: Present: Shortness of Breath, Wheezing Cardiac: Present: No Symptoms Reported Abdominal: Present: No Symptoms Reported, Bright blood from rectum Musculoskeletal: Present: No Symptoms Reported Neurological: Present: No Symptoms Reported Skin: Present: No Symptoms Reported Endocrine: Present: No Symptoms Reported Misc: All systems neg except as marked Immunizations: IMMUNIZATION HX Immunizations Up to Date Yes History of Influenza Vaccine No Allergies/Adverse Reactions: Allergies Allergy/AdvReac Type Severity Reaction Status Date / Time codeine AdvReac Mild gi upset Verified 02/03/19 12:38 Home Medications: HOME MEDICATIONS aspirin 81 mg tablet,delayed release 81 mg PO DAILY 06/25/18 [Last Taken Unknown] albuterol sulfate HFA 90 mcg/actuation aerosol inhaler See Rx Instructions IH .COMPLEX PRN #18 g 07/21/18 [Last Taken Unknown] RX: Acetaminophen [Tylenol] 325 mg PO Q6H PRN tab 09/01/18 [Last Taken Unknown] RX: Albuterol Sulfate [Albuterol Sulfate 2.5 MG/0.5ML] 2.5 mg INHALATION Q4H PRN vial.neb 09/01/18 [Last Taken Unknown] budesonide-formoterol HFA 160 mcg-4.5 mcg/actuation aerosol inhaler 2 puff IH Q12H #10.2 g 09/09/18 [Last Taken Unknown] vortioxetine 20 mg tablet 20 mg PO DAILY #30 tab 10/02/18 [Last Taken Unknown] etodolac 400 mg tablet 400 mg PO BID #60 tab 11/30/18 [Last Taken Unknown] aripiprazole 10 mg tablet 10 mg PO DAILY #30 tab 12/22/18 [Last Taken Unknown] tiotropium bromide 18 mcg capsule with inhalation device 1 cap IH DAILY #30 inh 01/27/19 [Last Taken Unknown] eszopiclone 1 mg tablet 1 mg PO HS #14 tab 01/28/19 [Last Taken Unknown] Exam - Exam Vital Signs: Vital Signs - Last Taken Temp 36.6 C 02/03/19 18:57 Pulse 118 H 02/03/19 18:57 Resp 24 H 02/03/19 18:57 BP 137/72 02/03/19 18:57 Pulse Ox 91 L 02/03/19 18:57 Constitutional: Present: Alert, Oriented x3, Cooperative, Well developed, Well nourished, No distress, Moderate distress ENT Exam: Present: normal ENT inspection, hearing grossly normal, pharynx normal, TMs normal Eye Exam: bilateral eye: normal inspection, PERRL, EOMI Neck: Present: non-tender, limited range of motion, lymphadenopathy (L) Back Exam: Present: normal inspection, no CVA tenderness, no vertebral tenderness Respiratory: Present: chest non-tender, respiratory distress, decreased breath sounds, accessory muscle use, rhonchi, wheezing, expiration (prolonged) Cardiovascular/Chest: Present: normal peripheral pulses, regular rate, rhythm, no chest tenderness, no edema, no gallop, no JVD, no murmur, no rub Peripheral Pulses: carotid (R): 2+, carotid (L): 2+, radial (R): 2+, radial (L): 2+ Abdomen: Present: Normal bowel sounds, soft, nontender, nondistended, no rebound tenderness, no hepatospenomegaly, no masses /Rectal: Present: Exam deferred Extremity: Present: normal range of motion, non-tender, normal inspection, no pedal edema, no calf tenderness, normal capillary refill Skin Exam: Present: normal color, warm/dry, other - Ashened color when hypoxemic but normal in color after oxygen was in the 90% range. 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, normal cerebellar test, no motor/sensory deficits, alert, normal mood/affect, oriented x 3 Appearance: Present: appropriate appearance, appropriate insight, neat, no memory impairment Eye contact: Present: cooperative, good eye contact, normal speech Thoughts: Present: normal thought pattern, no apparent hallucination Diagnostic Studies: Abnormal Lab Results 02/03/19 02/03/19 02/03/19 Range/Units 10:00 10:00 10:55 WBC 11.8 H (4.0-10.5) K/mm3 Immature Gran # (Auto) 0.05 H (0.000-0.0310) K/mm3 Neutrophils % 80.9 H (42-75.0) % Lymphocytes % 12.0 L (20-51) % Neutrophils # 9.6 H (1.3-6.0) K/mm3 Lymphocytes # 1.42 L (1.5-3.5) k/mm3 pCO2 47.4 H (32.0-45.0) mmHg pO2 76.3 L (83.0-108.0) mmHg HCO3 28.6 H (21.0-28.0) mmol/L Total CO2 30.0 H (19.0-24.0) mmol/L Base Excess 3.1 H (-2.0-3.0) mmol/L Random Glucose 161 H (70-110) mg/dL Albumin 3.1 L (3.4-5.0) gm/dl Urine Glucose (UA) (NEGATIVE) mg/dL Urine Blood (NEGATIVE) /ul 02/03/19 Range/Units 14:13 WBC (4.0-10.5) K/mm3 Immature Gran # (Auto) (0.000-0.0310) K/mm3 Neutrophils % (42-75.0) % Lymphocytes % (20-51) % Neutrophils # (1.3-6.0) K/mm3 Lymphocytes # (1.5-3.5) k/mm3 pCO2 (32.0-45.0) mmHg pO2 (83.0-108.0) mmHg HCO3 (21.0-28.0) mmol/L Total CO2 (19.0-24.0) mmol/L Base Excess (-2.0-3.0) mmol/L Random Glucose (70-110) mg/dL Albumin (3.4-5.0) gm/dl Urine Glucose (UA) >=1000 H (NEGATIVE) mg/dL Urine Blood 25 H (NEGATIVE) /ul Laboratory Results WBC 11.8 K/mm3 (4.0-10.5) H 02/03/19 10:00 RBC 4.35 M/mm3 (4.2-5.4) 02/03/19 10:00 Hgb 12.6 gm/dL (12.5-16.0) 02/03/19 10:00 Hct 38.7 % (37.0-47.0) 02/03/19 10:00 MCV 89.0 fl (78-100) 02/03/19 10:00 MCH 29.0 pg (27-31) 02/03/19 10:00 MCHC 32.6 g/dl (32-36) 02/03/19 10:00 RDW 12.7 % (11.5-14.0) 02/03/19 10:00 Plt Count 315 K/mm3 (150-450) 02/03/19 10:00 MPV 9.8 fl (8-12.5) 02/03/19 10:00 Immature Gran % (Auto) 0.40 % (0.001-0.429) 02/03/19 10:00 Immature Gran # (Auto) 0.05 K/mm3 (0.000-0.0310) H 02/03/19 10:00 Neutrophils % 80.9 % (42-75.0) H 02/03/19 10:00 Lymphocytes % 12.0 % (20-51) L 02/03/19 10:00 Monocytes % 6.1 % (0.0-9) 02/03/19 10:00 Eosinophils % 0.3 % (0.0-3.0) 02/03/19 10:00 Basophils % 0.3 % (0.0-1.0) 02/03/19 10:00 Nucleated RBC % 0.0 k/mm3 (0-1) 02/03/19 10:00 Neutrophils # 9.6 K/mm3 (1.3-6.0) H 02/03/19 10:00 Lymphocytes # 1.42 k/mm3 (1.5-3.5) L 02/03/19 10:00 Monocytes # 0.7 k/mm3 (0.0-1.0) 02/03/19 10:00 Eosinophils # 0.0 k/mm3 (0.0-0.7) 02/03/19 10:00 Absolute Basophils 0.0 k/mm3 (0.0-0.1) 02/03/19 10:00 pCO2 47.4 mmHg (32.0-45.0) H 02/03/19 10:55 pO2 76.3 mmHg (83.0-108.0) L 02/03/19 10:55 HCO3 28.6 mmol/L (21.0-28.0) H 02/03/19 10:55 Total CO2 30.0 mmol/L (19.0-24.0) H 02/03/19 10:55 Base Excess 3.1 mmol/L (-2.0-3.0) H 02/03/19 10:55 ABG pH 7.40 (7.35-7.45) 02/03/19 10:55 ABG O2 Sat (Measured) 95.2 % (94.0-98.0) 02/03/19 10:55 Sodium 138 mmol/L (132-142) 02/03/19 10:00 Plasma Sodium 139 mmol/L (130-142) 02/03/19 10:00 Potassium 3.9 mmol/L (3.4-4.6) 02/03/19 10:00 Chloride 98 mmol/L (97-106) 02/03/19 10:00 Carbon Dioxide 31.6 mmol/L (24-32.6) 02/03/19 10:00 Anion Gap 12.3 mmol/L (6.8-13.8) 02/03/19 10:00 BUN 7 mg/dL (3-23) 02/03/19 10:00 Creatinine 0.78 mg/dL (0.4-1.4) 02/03/19 10:00 Est GFR (Non-Af Amer) 81 mL/min (60-130) D 02/03/19 10:00 BUN/Creatinine Ratio 9.0 (9.0-21.6) 02/03/19 10:00 Random Glucose 161 mg/dL (70-110) H 02/03/19 10:00 Calcium 9.0 mg/dL (7.9-10.9) 02/03/19 10:00 Calcium Adj for Albumin 9.4 mg/dL (8.4-10.2) 02/03/19 10:00 Total Bilirubin 0.3 mg/dL (0.0-1.1) 02/03/19 10:00 AST 21 U/L (0-48) 02/03/19 10:00 ALT 33 U/L (19-67) 02/03/19 10:00 Alkaline Phosphatase 130 U/L (50-170) 02/03/19 10:00 Troponin I Less than 0.017 ng/mL (0.00-0.10) 02/03/19 10:00 B-Natriuretic Peptide 170 pg/mL (5-205) 02/03/19 10:00 Total Protein 7.5 gm/dL (6.2-8.2) 02/03/19 10:00 Albumin 3.1 gm/dl (3.4-5.0) L 02/03/19 10:00 Urine Color Yellow 02/03/19 14:13 Urine Appearance Clear (CLEAR) 02/03/19 14:13 Urine pH 6.0 pH (5.0-7.0) 02/03/19 14:13 Ur Specific [place] 1.010 SP.GR. (1.005-1.010) 02/03/19 14:13 Urine Protein Negative mg/dL (NEGATIVE) 02/03/19 14:13 Urine Glucose (UA) >=1000 mg/dL (NEGATIVE) H 02/03/19 14:13 Urine Ketones Negative mg/dL (NEGATIVE) 02/03/19 14:13 Urine Blood 25 /ul (NEGATIVE) H 02/03/19 14:13 Urine Nitrate Negative (NEGATIVE) 02/03/19 14:13 Urine Bilirubin Negative mg/dl (NEGATIVE) 02/03/19 14:13 Urine Urobilinogen Normal EU/dl (NORMAL) 02/03/19 14:13 Ur Leukocyte Esterase Negative /ul (NEGATIVE) 02/03/19 14:13 Urine RBC None seen /hpf (0-5) 02/03/19 14:13 Urine WBC Trace /hpf (0-5) 02/03/19 14:13 Ur Epithelial Cells Trace /hpf (0-5) 02/03/19 14:13 Urine Bacteria None seen (NONE) 02/03/19 14:13 Influenza Type A Ag Negative (NEGATIVE) 02/03/19 10:00 Influenza Type B Ag Negative (NEGATIVE) 02/03/19 10:00 Assessment/Plan - Narrative Narrative: She is admitted to observation and will receive respiratory therapy treatments e very 6 hours routinely and every 4 when necessary. She'll also receive formoterol and budesonide per nebulizer. Continue Rocephin 1 g IV piggyback until discharge. And Zithromax was started. She will be on oxygen 2 L nasal cannula. Respiratory therapy will work with her with weaning. I fully expect she will require home oxygen and I know she'll require a nebulizer. [facility] will be contacted for her. Her other usual home meds will be continued for the most part. [id number] for nebulizer and home oxygen: Mrs. Colón has advanced COPD and is extremely tight on admission. She has improved with therapy but she'll need to continue this therapy at home. She'll need a nebulizer to do albuterol treatments and perhaps formoterol and budesonide. She will be evaluated for oxygen tomorrow. I suspect she is chronically low and her oxygen at home as she is usually in the 87-88% range when she comes to the office. She has adapted to that but she also is prone to severe exacerbations. Good nebulizer therapy will be necessary to keep her from having these recurrent events. She will benefit greatly from a nebulizer and most likely will benefit greatly from oxygen as well. She will get oxygen concentrator for home and a portable unit as well. - Assessment/Plan (1) Shortness of breath Problem: Acute (2) COPD exacerbation Problem: Acute (3) Hypoxemia Problem: Acute
[2019-02-03] MEDS ORDERED: ESZOPICLONE 1 MG PO SCH (21:00)
[2019-02-04] MEDS: ALBUTEROL SULFATE/IPRATROPIUM 3 ML NEBU IH SCH ×4 (00:13→17:59)
[2019-02-04] MEDS: BENZONATATE 100 MG CAPSULE PO PRN ×2 (00:32→08:22)
[2019-02-04] MEDS: ALBUTEROL SULFATE 2.5 MG/0.5 ML VIAL.NEB IH PRN ×2 (03:13→11:29)
[2019-02-04 05:57] LABS: Hematocrit 38.8 % (37.0-47.0); Mean Corpuscular Hemoglobin 27.8 pg (27-31); Mean Corpuscular Hgb Conc 30.9 g/dl (32-36); Mean Platelet Volume 10.3 fl (8-12.5); Neutrophil # 8.5 K/mm3 (1.3-6.0); Neutrophil % 84.6 % (42-75.0); Platelet Count 349 K/mm3 (150-450); Red Blood Count 4.31 M/mm3 (4.2-5.4); Red Cell Distribution Width 12.6 % (11.5-14.0)
[2019-02-04] MEDS: FORMOTEROL FUMARATE 20 MCG/2 ML VIAL IH SCH ×2 (06:00→17:59)
[2019-02-04] MEDS: BUDESONIDE 0.5 MG/2 ML VIAL.NEB IH SCH ×2 (06:00→17:59)
[2019-02-04 06:03] LABS: Albumin * 3.1 gm/dl (3.4-5.0); Anion Gap 11.2 mmol/L (6.8-13.8); BUN/Creatinine Ratio 16.2 (9.0-21.6); Bilirubin, Total 0.2 mg/dL (0.0-1.1); Ca. Corrected For Albumin 9.5 mg/dL (8.4-10.2); Calcium * 9.1 mg/dL (7.9-10.9); Carbon Dioxide 30.9 mmol/L (24-32.6); Potassium 4.1 mmol/L (3.4-4.6); Total Protein 7.5 gm/dL (6.2-8.2)
[2019-02-04] MEDS: ASPIRIN 81 MG TABLET.DR PO SCH (08:06)
[2019-02-04] MEDS: AZITHROMYCIN 250 MG TABLET PO SCH (08:06)
[2019-02-04] MEDS: ARIPiprazole 10 MG TABLET PO SCH (08:06)
[2019-02-04] MEDS: TIOTROPIUM BROMIDE 5 CAP INHALER IH SCH (08:08)
[2019-02-04] MEDS ORDERED: ARIPiprazole 10 MG TABLET PO SCH (09:00)
[2019-02-04] MEDS ORDERED: TIOTROPIUM BROMIDE 5 CAP INHALER IH SCH (09:00)
[2019-02-04] MEDS ORDERED: ASPIRIN 81 MG TABLET.DR PO SCH (09:00)
[2019-02-04] MEDS ORDERED: INSULIN LISPRO 100 UNITS/ML VIAL SC STA (13:58)
--- NOTE | 2019-02-04 18:21 | DS ---
(1) Shortness of breath Problem: Acute (2) COPD exacerbation Problem: Acute (3) Hypoxemia Problem: Acute Description of Stay: Roselia Colón was admitted on observation stay yesterday for acute exacerbation of COPD with marked hypoxemia. She had initially presented to the office with oxygen saturation of 71%. After breathing treatment it was 81% and she was taken to the emergency room. She was further evaluated there by Dr. Wright and treated and by the time she got to the medical floor was much improved. She will require home oxygen and nebulizer equipment and limb care has been contacted and has provided the equipment she needs to go home with. She's also been instructed on the use of the equipment and understands that she must quit smoking. This evening she is breathing without difficulty bacilli on 2 L nasal cannula O2. Blood sugars jumped up this afternoon because of the IV steroids that she had in the emergency room and after admission. She was given 15 units of insulin lispro and this evening her blood sugars down in the 220s. This is good enough for her to be discharged with. Procedures Performed: none Results and Findings: Lab Pending Results 02/03/19 10:00: WBC 11.8 H, RBC 4.35, Hgb 12.6, Hct 38.7, MCV 89.0, MCH 29.0, MCHC 32.6, RDW 12.7, Plt Count 315, MPV 9.8, Immature Gran % (Auto) 0.40, Immature Gran # (Auto) 0.05 H, Neutrophils % 80.9 H, Lymphocytes % 12.0 L, Monocytes % 6.1, Eosinophils % 0.3, Basophils % 0.3, Nucleated RBC % 0.0, Neutrophils # 9.6 H, Lymphocytes # 1.42 L, Monocytes # 0.7, Eosinophils # 0.0, Absolute Basophils 0.0 02/03/19 10:00: Sodium 138, Plasma Sodium 139, Potassium 3.9, Chloride 98, Carbon Dioxide 31.6, Anion Gap 12.3, BUN 7, Creatinine 0.78, Est GFR (Non-Af Amer) 81 D, BUN/Creatinine Ratio 9.0, Random Glucose 161 H, Calcium 9.0, Calcium Adj for Albumin 9.4, Total Bilirubin 0.3, AST 21, ALT 33, Alkaline Phosphatase 130, Troponin I Less than 0.017, B-Natriuretic Peptide 170, Total Protein 7.5, Albumin 3.1 L 02/03/19 10:00: Influenza Type A Ag Negative, Influenza Type B Ag Negative 02/03/19 10:55: pCO2 47.4 H, pO2 76.3 L, HCO3 28.6 H, Total CO2 30.0 H, Base Excess 3.1 H, ABG pH 7.40, ABG O2 Sat (Measured) 95.2 02/03/19 14:13: Urine Color Yellow, Urine Appearance Clear, Urine pH 6.0, Ur Specific [place] 1.010, Urine Protein Negative, Urine Glucose (UA) >=1000 H, Urine Ketones Negative, Urine Blood 25 H, Urine Nitrate Negative, Urine Bilirubin Negative, Urine Urobilinogen Normal, Ur Leukocyte Esterase Negative, Urine RBC None seen, Urine WBC Trace, Ur Epithelial Cells Trace, Urine Bacteria None seen 02/04/19 05:15: WBC 10.0, RBC 4.31, Hgb 12.0 L, Hct 38.8, MCV 90.0, MCH 27.8, MCHC 30.9 L, RDW 12.6, Plt Count 349, MPV 10.3, Immature Gran % (Auto) 0.80 H, Immature Gran # (Auto) 0.08 H, Neutrophils % 84.6 H, Lymphocytes % 8.6 L, Monocytes % 5.9, Eosinophils % 0.0, Basophils % 0.1, Nucleated RBC % 0.0, Neutrophils # 8.5 H, Lymphocytes # 0.86 L, Monocytes # 0.6, Eosinophils # 0.0, Absolute Basophils 0.0 02/04/19 05:15: Sodium 136, Plasma Sodium 140, Potassium 4.1, Chloride 98, Carbon Dioxide 30.9, Anion Gap 11.2, BUN 16 D, Creatinine 0.99, Est GFR (Non-Af Amer) 61 D, BUN/Creatinine Ratio 16.2, Random Glucose 366 H D, Calcium 9.1, Calcium Adj for Albumin 9.5, Total Bilirubin 0.2, AST 13, ALT 27, Alkaline Phosphatase 124, Total Protein 7.5, Albumin 3.1 L 02/04/19 13:40: Random Glucose 354 H Discharge Location: Home Disposition: Home self-care Condition: Stable Face to Face Encounter completed per [facility] Guidelines: Yes - for home oxygen and nebulizer equipment Discharge Activity: Activity as tolerated Discharge Diet: General/regular food Referrals: Rogelio Hussein DO [Primary Care Provider] - Additional Patient Instructions (free text): Absolutely no smoking ever. Complete Home Medications List: Complete Home Medication List: aspirin 81 mg tablet,delayed release 81 mg PO DAILY 06/25/18 albuterol sulfate HFA 90 mcg/actuation aerosol inhaler See Rx Instructions IH .COMPLEX PRN #18 g 07/21/18 Acetaminophen [Tylenol] 325 mg PO Q6H PRN tab 09/01/18 Albuterol Sulfate [Albuterol Sulfate 2.5 MG/0.5ML] 2.5 mg INHALATION Q4H PRN vial.neb 09/01/18 budesonide-formoterol HFA 160 mcg-4.5 mcg/actuation aerosol inhaler 2 puff IH Q12H #10.2 g 09/09/18 vortioxetine 20 mg tablet 20 mg PO DAILY #30 tab 10/02/18 etodolac 400 mg tablet 400 mg PO BID #60 tab 11/30/18 aripiprazole 10 mg tablet 10 mg PO DAILY #30 tab 12/22/18 tiotropium bromide 18 mcg capsule with inhalation device 1 cap IH DAILY #30 inh 01/27/19 eszopiclone 1 mg tablet 1 mg PO HS #14 tab 01/28/19 Albuterol Sulfate/Ipratropium [Duoneb 2.5-0.5MG/3ML Soln] 3 ml INHALATION Q6HRT #100 nebu 02/04/19 Azithromycin [Zithromax] 500 mg PO DAILY 2 Days #2 tab 02/04/19 Benzonatate [Tessalon] 100 mg PO QID PRN #60 cap 02/04/19 Budesonide [Pulmicort Respules] 0.5 mg INHALATION BIDRT #60 vial.neb 02/04/19 Formoterol Fumarate [Perforomist] 20 mcg INHALATION BIDRT #60 vial 02/04/19
[2019-02-04 21:09] VITALS: BP 156/65
== END 2019-02-04 19:40 | disposition home or self-care (01) ==
LOC: MS 09:37 → ER 09:37 → MS 12:31
PROVIDERS: ADMIT Family Medicine; ATTEND Family Medicine
CPT/HCPCS: 36415; 36600; 71020; 71046; 80053; 81001; 82803; 82947; 83519; 83880; 84484; 85025; 87400; 87449; 93005; 94640; 94664; 96365; 96372; 96375; 99285; G0378

== ENCOUNTER 2020-01-31 16:14 | Observation (INO) ==
--- NOTE | 2020-01-31 17:15 | ERNOTE ---
Medical Problem HPI - Narrative Date of Service: 01/31/20 - General Chief Complaint: General Assessment Time Seen by Provider: 01/31/20 16:48 Source: patient Exam Limitations: no limitations - Immun/Allergies/Home Medications Immunizations: IMMUNIZATION HX Immunizations Up to Date Yes History of Influenza Vaccine Yes Hx Pneumococcal Vaccination Yes Allergies/Adverse Reactions: Allergies codeine Adverse Reaction (Mild, Verified 01/26/20 10:39) gi upset Home Medications: HOME MEDICATIONS Acetaminophen [Tylenol] 325 mg PO Q6H PRN tab 09/01/18 [Last Taken Unknown] albuterol sulfate 2.5 mg/0.5 mL solution for nebulization 2.5 mg INHALATION Q4H PRN #60 ea 05/13/19 [Last Taken Unknown] albuterol sulfate 90 mcg/actuation aerosol inhaler See Rx Instructions IH .COMPLEX PRN #18 g 05/13/19 [Last Taken Unknown] tiotropium bromide 18 mcg capsule with inhalation device See Rx Instructions .ROUTE .COMPLEX #30 unspecified 07/27/19 [Last Taken Unknown] budesonide-formoterol HFA 160 mcg-4.5 mcg/actuation aerosol inhaler See Rx Instructions .ROUTE .COMPLEX #10.2 g 08/26/19 [Last Taken Unknown] eszopiclone 2 mg tablet 2 mg PO HS #30 tab 10/07/19 [Last Taken Unknown] atorvastatin 40 mg tablet 40 mg PO QPM #30 tab 11/23/19 [Last Taken Unknown] LORazepam [Ativan] 0.5 mg PO TID PRN #90 tab 12/05/19 [Last Taken Unknown] Durable Medical Equipment See Rx Instructions .ROUTE .MEDSUPPLY #1 ea 01/26/20 [Last Taken Unknown] apixaban 5 mg tablet 5 mg PO BID 01/26/20 [Last Taken Unknown] cariprazine 3 mg capsule 3 mg PO DAILY 01/26/20 [Last Taken Unknown] metformin 1,000 mg tablet 1,000 mg PO BID 01/26/20 [Last Taken Unknown] metoprolol tartrate 25 mg tablet 25 mg PO BID 01/26/20 [Last Taken Unknown] ondansetron 4 mg disintegrating tablet 4 mg PO Q6H PRN #20 tab 01/26/20 [Last Taken Unknown] pantoprazole 40 mg tablet,delayed release 40 mg PO DAILY 01/26/20 [Last Taken Unknown] tamsulosin 0.4 mg capsule 0.4 mg PO HS 01/26/20 [Last Taken Unknown] tramadol 50 mg tablet 50 mg PO Q8H PRN 01/26/20 [Last Taken Unknown] urea 20 % topical cream 1 applic TP BID PRN 01/26/20 [Last Taken Unknown] vortioxetine 20 mg tablet 20 mg PO DAILY 01/26/20 [Last Taken Unknown] - History of Present History Narrative: patient presents to ed with c/o anemia, advised by dr hussein to come for transfusion,, recently had pe and had been urinating blood after startblood thinner for multiple pe Timing: constant Severity: moderate Modifying Factors - (Improves): Present: rest Modifying Factors - (Worsens): Present: movement, other - patient gets sob with activity Review of Systems - Review of Systems Constitutional: Present: See HPI, weakness, fatigue, malaise EYE: Present: no symptoms reported ENT: Present: no symptoms reported Respiratory: Present: no symptoms reported Cardiology: Present: no symptoms reported Gastrointestinal/Abdominal: Present: no symptoms reported Genitourinary: Present: no symptoms reported Musculoskeletal: Present: no symptoms reported Skin: Present: no symptoms reported Neurological: Present: no symptoms reported Endocrine: Present: no symptoms reported Hematologic/Lymphatic: Present: See HPI, easy bleeding Psych: Present: no symptoms reported All Other Systems: All systems neg except as marked Medical History (Last Reviewed 01/26/20 @ 10:34 by Cristela Lovett [facility]) Nausea (Acute) History of tobacco abuse (Chronic) Chest recently stopped smoking. History of acute respiratory failure (Resolved) Restless leg syndrome (Acute) Restless leg (Acute) Pulmonary histoplasmosis (Chronic) Type II diabetes mellitus with complication (Acute) BS by finger stick at home this morning was 287. Family hx of DM is strong but Leslie has never been diagnosed with it. Insomnia disorder, with non-sleep disorder mental comorbidity, persistent (Chronic) Oral candidiasis (Acute) COPD (chronic obstructive pulmonary disease) with acute bronchitis (Chronic) Major depressive disorder, recurrent episode, moderate (Acute) Low back pain (Acute) Leg pain, left (Acute) Elevated C-reactive protein (CRP) (Chronic) Elevated sed rate (Chronic) Headache disorder (Chronic) Onset Date: Unknown Tobacco abuse (Chronic) Onset Date: Unknown COPD (chronic obstructive pulmonary disease) (Chronic) Onset Date: Unknown Oxygen dependent. COPD is severe Back pain (Chronic) Onset Date: Unknown Anxiety (Chronic) Onset Date: Unknown Depression (Chronic) Onset Date: Unknown Stress incontinence Onset Date: Unknown Surgical History: Surgical History (Last Reviewed 01/26/20 @ 10:34 by Cristela Lovett CMA) H/O tubal ligation Onset Date: ~1988 Family History: Family History (Last Reviewed 01/26/20 @ 10:34 by Cristela Lovett CMA) Mother Cancer melanoma Father , age 70's DVT (deep venous thrombosis) Alcoholism Varicose veins of both lower extremities Social History: (Last Updated 01/26/20 @ 15:34 by Rogelio Hussein DO) Social History: residential: No Marital status: / household members: none current occupational status: retired Service: No Tobacco: Smoking Status: Current every day smoker Alcohol: alcohol intake: former Substance Use: substance use type: former substance user Dietary Habits: caffeine: Yes Physical Exam - Physical Exam General Appearance: Present: no apparent distress, anxious Head Exam: Present: normal inspection, no evidence of injury Eye Exam: Normal inspection: bilateral, PERRL: bilateral, EOMI: bilateral Ears, Nose, Throat: Present: normal ENT inspection, normal pharynx Neck: Present: normal inspection, nontender Respiratory: Present: no respiratory distress, normal breath sounds, no accessory muscle use, chest nontender, lungs clear Cardiovascular/Chest: Present: regular rate, rhythm, no murmur, normal peripheral pulses Gastrointestinal/Abdominal: Present: normal bowel sounds, nontender, nondistended, soft, no organomegaly Back Exam: Present: normal inspection, normal range of motion, no CVA tenderness, no vertebral tenderness Extremity Exam: Present: normal inspection, non-tender, normal range of motion, no edema Neurological Exam: Present: alert, oriented, normal mood/affect, no motor/sensory deficits Skin Exam: Present: warm/dry, pallor Lymphatic Exam: Present: no adenopathy Progress - Date and Time Seen: Date and Time: 01/31/20 18:02 condition unchanged, reviewed labs with patient, to be tranfused with 2 units prbcs followed by dismissed - Results and Orders Patient's Lab Results:: I have reviewed the patient's lab results. - Vital Signs Patient's Vital Signs:: I have reviewed the patient's vital signs. Vital Signs: Vital Signs 01/31/20 16:39 Temperature 36.5 C Pulse Rate 79 Respiratory Rate 22 H Blood Pressure 145/57 H O2 Sat by Pulse Oximetry 96 - Progress/Reassessment Chief Complaint: General Assessment Progress:: Unchanged - Transfer of Care Expected Disposition: Discharge Plan - Plan Plan: to be tranfused and dismissed Departure Clinical Impression: Anemia - Departure Disposition: Home self-care Condition: Stable Instructions: Anemia, Nonspecific Referrals: Rogelio Hussein DO [Primary Care Provider] -
[2020-01-31 17:37] LABS: Hematocrit 25.1 % (37.0-47.0); Mean Cell Volume 89.6 fl (78-100); Mean Corpuscular Hemoglobin 27.5 pg (27-31); Mean Corpuscular Hgb Conc 30.7 g/dl (32-36); Mean Platelet Volume 8.9 fl (8-12.5); Neutrophil # 3.2 K/mm3 (1.3-6.0); Neutrophil % 54.4 % (42-75.0); Platelet Count 391 K/mm3 (150-450); Red Cell Distribution Width 15.9 % (11.5-14.0); White Blood Count 5.9 K/mm3 (4.0-10.5)
[2020-01-31 17:39] LABS: Hemoglobin 7.7 gm/dL (12.5-16.0)
[2020-01-31 17:50] LABS: Prothrombin Time (Patient) 11.8 Seconds (9.1-10.7)
[2020-01-31 17:54] LABS: Albumin * 2.3 gm/dl (3.4-5.0); BUN/Creatinine Ratio 3.8 (9.0-21.6); Bilirubin, Total 0.1 mg/dL (0.0-1.1); Ca. Corrected For Albumin 7.6 mg/dL (8.4-10.2); Calcium * 6.6 mg/dL (7.9-10.9); Carbon Dioxide 32.3 mmol/L (24-32.6); INR 1.2 INR (0.92-1.08); Total Protein 5.6 gm/dL (6.2-8.2)
[2020-01-31 18:08] LABS: Potassium 2.3 mmol/L (3.4-4.6)
[2020-01-31 18:09] LABS: Urine Bilirubin 1 mg/dl (NEGATIVE); Urine Blood 250 /ul (NEGATIVE); Urine Ketone 5 mg/dL (NEGATIVE); Urine Nitrite Negative (NEGATIVE); Urine Protein 30 mg/dL (NEGATIVE); Urine Specific Gravity 1.025 SP.GR. (1.005-1.010); Urine Urobilinogen Normal (NORMAL); Urine pH 6.5 pH (5.0-7.0)
[2020-01-31] MEDS ORDERED: POTASSIUM CHLORIDE IN WATER 100 ML IV ONE (18:13)
[2020-01-31 18:23] LABS: Urine Appearance Cloudy (CLEAR); Urine Bacteria 1+; Urine Color Brown; Urine RBC >50 /hpf (0-5)
[2020-01-31] MEDS ORDERED: NORMAL SALINE 1,000 ML IV PRN (19:26)
[2020-01-31] MEDS ORDERED: ALBUTEROL SULFATE 200 PUFF INHALER IH PRN (22:28)
[2020-01-31] MEDS ORDERED: ONDANSETRON 4 MG TAB.RAPDIS PO PRN (22:28)
[2020-01-31] MEDS ORDERED: ALBUTEROL SULFATE 2.5 MG/0.5 ML VIAL.NEB IH PRN (22:28)
[2020-01-31] MEDS ORDERED: LORazepam 0.5 MG TABLET PO PRN (22:28)
[2020-01-31] MEDS ORDERED: ROSUVASTATIN CALCIUM 10 MG TABLET ONE (23:07)
[2020-01-31] MEDS ORDERED: METOPROLOL TARTRATE 25 MG TABLET ONE ×2 (23:07)
[2020-01-31] MEDS ORDERED: TAMSULOSIN HCL 0.4 MG CAP.SR.24H PO ONE (23:08)
[2020-01-31] MEDS: ROSUVASTATIN CALCIUM 20 MG TABLET PO SCH (23:10)
[2020-01-31] MEDS: METOPROLOL TARTRATE 25 MG TABLET PO SCH (23:11)
[2020-02-01] MEDS: ACETAMINOPHEN 325 MG TABLET PO PRN ×2 (04:14→12:08)
[2020-02-01 05:35] LABS: Prothrombin Time (Patient) 11.5 Seconds (9.1-10.7)
[2020-02-01 05:38] LABS: Albumin * 2.4 gm/dl (3.4-5.0); Anion Gap 12.7 mmol/L (6.8-13.8); BUN/Creatinine Ratio 4.9 (9.0-21.6); Bilirubin, Total 0.4 mg/dL (0.0-1.1); Ca. Corrected For Albumin 7.7 mg/dL (8.4-10.2); Calcium * 6.7 mg/dL (7.9-10.9); Carbon Dioxide 31.3 mmol/L (24-32.6); Total Protein 5.7 gm/dL (6.2-8.2)
[2020-02-01 05:58] LABS: INR 1.17 INR (0.92-1.08)
[2020-02-01 05:59] LABS: Partial Thrombolplastin Time 24.5 Seconds (24-32)
[2020-02-01] MEDS ORDERED: OXYGEN IH SCH (07:00)
[2020-02-01] MEDS ORDERED: FLUTICASONE PROPION/SALMETEROL 14 PUFF DISK.W.DEV IH SCH ×2 (09:00)
[2020-02-01] MEDS ORDERED: TIOTROPIUM BROMIDE 5 CAP INHALER IH SCH ×2 (09:00)
[2020-02-01] MEDS ORDERED: PANTOPRAZOLE SODIUM 40 MG TABLET.EC PO SCH (09:00)
[2020-02-01] MEDS: METOPROLOL TARTRATE 25 MG TABLET PO SCH (09:13)
[2020-02-01] MEDS ORDERED: traMADol HCL 50 MG TABLET PO PRN (09:19)
--- NOTE | 2020-02-01 09:48 | HP ---
Chief Complaint - Chief Complaint Date of Service: 02/01/20 Time of Service: 09:23 Chief Complaint: Dyspnea, weakness, History of Present Illness: Roselia Colón is a 59-year-old female with severe COPD. She was recently at [facility] on a ventilator for about a week and was weaned off and was seen in my office last week. She was on room air at the time but appeared pale. The CBC showed a hemoglobin of 7.8 g. We notified her that she would probably need some blood and if she became symptomatic with shortness of breath she should come to the ER which she did last night. Her hemoglobin was 7.7g. She also had pulmonary emboli while at [facility] and was started on a apixaban. She is not aware of any bleeding. She has received 2 units of packed red blood cells through the night started in the emergency room. Her renal status is excellent. Her potassium was low at 2.3 on admission but is 3.0 this morning. Her CBC will be repeated at 10 AM. The chest x-ray shows a faint pneumonia in the left lower lobe or lingular lobe area with a very small pleural effusion seen posteriorly on the lateral view. This most likely represents a resolving pneumonia for which she was treated at [facility] last week. Reassess her hemoglobin to see if she will need any more blood. She can probably be discharged later this afternoon. Medical History (Last Reviewed 01/31/20 @ 20:45 by Eve Nesbitt RN) Nausea (Acute) History of tobacco abuse (Chronic) Chest recently stopped smoking. History of acute respiratory failure (Resolved) Restless leg syndrome (Acute) Restless leg (Acute) Pulmonary histoplasmosis (Chronic) Type II diabetes mellitus with complication (Acute) BS by finger stick at home this morning was 287. Family hx of DM is strong but Leslie has never been diagnosed with it. Insomnia disorder, with non-sleep disorder mental comorbidity, persistent (Chronic) Oral candidiasis (Acute) COPD (chronic obstructive pulmonary disease) with acute bronchitis (Chronic) Major depressive disorder, recurrent episode, moderate (Acute) Low back pain (Acute) Leg pain, left (Acute) Elevated C-reactive protein (CRP) (Chronic) Elevated sed rate (Chronic) Headache disorder (Chronic) Onset Date: Unknown Tobacco abuse (Chronic) Onset Date: Unknown COPD (chronic obstructive pulmonary disease) (Chronic) Onset Date: Unknown Oxygen dependent. COPD is severe Back pain (Chronic) Onset Date: Unknown Anxiety (Chronic) Onset Date: Unknown Depression (Chronic) Onset Date: Unknown Stress incontinence Onset Date: Unknown Surgical History: Surgical History (Last Reviewed 01/31/20 @ 20:45 by Eve Nesbitt RN) H/O tubal ligation Onset Date: ~1988 Family History: Family History (Last Reviewed 01/31/20 @ 20:45 by Eve Nesbitt RN) Mother Cancer melanoma Father , age 70's DVT (deep venous thrombosis) Alcoholism Varicose veins of both lower extremities Social History: (Last Updated 01/31/20 @ 20:45 by Eve Nesbitt RN) Social History: chcf: No Marital status: / household members: none current occupational status: retired Service: No Tobacco: Smoking Status: Former smoker Alcohol: alcohol intake: former Substance Use: substance use type: former substance user Dietary Habits: caffeine: Yes Review Of Systems (GEN) - Review of Systems Generalized/Overall Review: Present: Weakness, Fatigue EENTM: Present: No Symptoms Reported Respiratory: Present: Cough, Shortness of Breath, Wheezing Cardiac: Present: No Symptoms Reported Abdominal: Present: No Symptoms Reported Genitourinary: Present: No Symptoms Reported Musculoskeletal: Present: No Symptoms Reported Neurological: Present: No Symptoms Reported Skin: Present: No Symptoms Reported Endocrine: Present: No Symptoms Reported Immunizations: IMMUNIZATION HX Immunizations Up to Date Yes History of Influenza Vaccine Yes Hx Pneumococcal Vaccination Yes Allergies/Adverse Reactions: Allergies Allergy/AdvReac Type Severity Reaction Status Date / Time codeine AdvReac Mild gi upset Verified 01/26/20 10:39 Home Medications: HOME MEDICATIONS Acetaminophen [Tylenol] 325 mg PO Q6H PRN tab 09/01/18 [Last Taken Unknown] albuterol sulfate 2.5 mg/0.5 mL solution for nebulization 2.5 mg INHALATION Q4H PRN #60 ea 05/13/19 [Last Taken Unknown] eszopiclone 2 mg tablet 2 mg PO HS #30 tab 10/07/19 [Last Taken Unknown] atorvastatin 40 mg tablet 40 mg PO QPM #30 tab 11/23/19 [Last Taken Unknown] LORazepam [Ativan] 0.5 mg PO TID PRN #90 tab 12/05/19 [Last Taken Unknown] Durable Medical Equipment See Rx Instructions .ROUTE .MEDSUPPLY #1 ea 01/26/20 [Last Taken Unknown] apixaban 5 mg tablet 5 mg PO BID 01/26/20 [Last Taken Unknown] cariprazine 3 mg capsule 3 mg PO DAILY 01/26/20 [Last Taken Unknown] metformin 1,000 mg tablet 1,000 mg PO BID 01/26/20 [Last Taken Unknown] metoprolol tartrate 25 mg tablet 25 mg PO BID 01/26/20 [Last Taken Unknown] ondansetron 4 mg disintegrating tablet 4 mg PO Q6H PRN #20 tab 01/26/20 [Last Taken Unknown] pantoprazole 40 mg tablet,delayed release 40 mg PO DAILY 01/26/20 [Last Taken Unknown] tamsulosin 0.4 mg capsule 0.4 mg PO HS 01/26/20 [Last Taken Unknown] tramadol 50 mg tablet 50 mg PO Q8H PRN 01/26/20 [Last Taken Unknown] urea 20 % topical cream 1 applic TP BID PRN 01/26/20 [Last Taken Unknown] vortioxetine 20 mg tablet 20 mg PO DAILY 01/26/20 [Last Taken Unknown] Albuterol Sulfate [Albuterol Sulfate Hfa] 2 puff INHALATION Q4H PRN 01/31/20 [Last Taken Unknown] Budesonide/Formoterol Fumarate [Symbicort 160-4.5 Mcg Inhaler] 2 puff INH BID 01/31/20 [Last Taken Unknown] Potassium Chloride 8 meq PO DAILY #30 cap 01/31/20 [Last Taken Unknown] Tiotropium [place] [Spiriva] 1 cap INH DAILY 01/31/20 [Last Taken Unknown] Exam - Exam Vital Signs: Vital Signs - Last Taken Temp 36.5 C 02/01/20 06:44 Pulse 66 02/01/20 09:13 Resp 18 02/01/20 06:44 BP 156/68 H 02/01/20 09:13 Pulse Ox 96 02/01/20 06:44 Constitutional: Present: Alert, Oriented x3, Cooperative, Well developed, Well nourished, Mild distress ENT Exam: Present: normal ENT inspection Eye Exam: bilateral eye: normal inspection, PERRL, EOMI Neck: Present: non-tender, full range of motion, supple, normal inspection Back Exam: Present: normal inspection, no CVA tenderness, no vertebral tenderness Breasts: Present: Exam deferred, Nontender Respiratory: Present: chest non-tender, accessory muscle use, rhonchi, wheezing, expiration (prolonged) Cardiovascular/Chest: Present: normal peripheral pulses, regular rate, rhythm, no chest tenderness, no edema, no gallop, no JVD, no murmur, no rub Peripheral Pulses: carotid (R): 2+, carotid (L): 2+, radial (R): 2+, radial (L): 2+ Abdomen: Present: Normal bowel sounds, soft, nontender, nondistended, no rebound tenderness, no hepatospenomegaly, no masses /Rectal: Present: Exam deferred Extremity: Present: normal range of motion, non-tender, normal inspection, no pedal edema, no calf tenderness, normal capillary refill Skin Exam: Present: normal color, warm/dry, no cyanosis Lymphatic: Present: no adenopathy Neurologic: Present: 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, normal cerebellar test, no motor/sensory deficits, alert, normal mood/affect, oriented x 3 Appearance: Present: appropriate appearance, appropriate insight, neat, no memory impairment Eye contact: Present: cooperative, good eye contact, normal speech Thoughts: Present: normal thought pattern, no apparent hallucination Diagnostic Studies: Abnormal Lab Results 01/31/20 01/31/20 01/31/20 Range/Units 17:27 17:27 17:27 RBC 2.80 L (4.2-5.4) M/mm3 Hgb 7.7 L* (12.5-16.0) gm/dL Hct 25.1 L (37.0-47.0) % MCHC 30.7 L (32-36) g/dl RDW 15.9 H (11.5-14.0) % Monocytes % 11.1 H (0.0-9) % PT (9.1-10.7) Seconds INR (Anticoag Therapy) (0.92-1.08) INR Sodium 147 H (132-142) mmol/L Plasma Sodium 147 H (130-142) mmol/L Potassium 2.3 L* D (3.4-4.6) mmol/L Chloride 107 H (97-106) mmol/L BUN 2 L D (3-23) mg/dL Est GFR (Non-Af Amer) (60-130) mL/min BUN/Creatinine Ratio 3.8 L (9.0-21.6) Calcium 6.6 L (7.9-10.9) mg/dL Calcium Adj for Albumin 7.6 L (8.4-10.2) mg/dL ALT 10 L (19-67) U/L Total Protein 5.6 L (6.2-8.2) gm/dL Albumin 2.3 L (3.4-5.0) gm/dl Urine Protein (NEGATIVE) mg/dL Urine Blood (NEGATIVE) /ul Urine Bilirubin (NEGATIVE) mg/dl Ur Leukocyte Esterase (NEGATIVE) /ul Urine RBC (0-5) /hpf Urine WBC (0-5) /hpf Ur Epithelial Cells (0-5) /hpf Urine Bacteria (NONE) Crossmatch See Detail 01/31/20 01/31/20 02/01/20 Range/Units 17:27 17:56 05:20 RBC (4.2-5.4) M/mm3 Hgb (12.5-16.0) gm/dL Hct (37.0-47.0) % MCHC (32-36) g/dl RDW (11.5-14.0) % Monocytes % (0.0-9) % PT 11.8 H (9.1-10.7) Seconds INR (Anticoag Therapy) 1.20 H (0.92-1.08) INR Sodium 145 H (132-142) mmol/L Plasma Sodium 145 H (130-142) mmol/L Potassium 3.0 L D (3.4-4.6) mmol/L Chloride (97-106) mmol/L BUN 2 L (3-23) mg/dL Est GFR (Non-Af Amer) 169 H D (60-130) mL/min BUN/Creatinine Ratio 4.9 L (9.0-21.6) Calcium 6.7 L (7.9-10.9) mg/dL Calcium Adj for Albumin 7.7 L (8.4-10.2) mg/dL ALT 9 L (19-67) U/L Total Protein 5.7 L (6.2-8.2) gm/dL Albumin 2.4 L (3.4-5.0) gm/dl Urine Protein 30 H (NEGATIVE) mg/dL Urine Blood 250 H (NEGATIVE) /ul Urine Bilirubin 1 H (NEGATIVE) mg/dl Ur Leukocyte Esterase 25 H (NEGATIVE) /ul Urine RBC >50 H (0-5) /hpf Urine WBC 10-25 H (0-5) /hpf Ur Epithelial Cells 5-10 H (0-5) /hpf Urine Bacteria 1+ H (NONE) Crossmatch 02/01/20 Range/Units 05:20 RBC (4.2-5.4) M/mm3 Hgb (12.5-16.0) gm/dL Hct (37.0-47.0) % MCHC (32-36) g/dl RDW (11.5-14.0) % Monocytes % (0.0-9) % PT 11.5 H (9.1-10.7) Seconds INR (Anticoag Therapy) 1.17 H (0.92-1.08) INR Sodium (132-142) mmol/L Plasma Sodium (130-142) mmol/L Potassium (3.4-4.6) mmol/L Chloride (97-106) mmol/L BUN (3-23) mg/dL Est GFR (Non-Af Amer) (60-130) mL/min BUN/Creatinine Ratio (9.0-21.6) Calcium (7.9-10.9) mg/dL Calcium Adj for Albumin (8.4-10.2) mg/dL ALT (19-67) U/L Total Protein (6.2-8.2) gm/dL Albumin (3.4-5.0) gm/dl Urine Protein (NEGATIVE) mg/dL Urine Blood (NEGATIVE) /ul Urine Bilirubin (NEGATIVE) mg/dl Ur Leukocyte Esterase (NEGATIVE) /ul Urine RBC (0-5) /hpf Urine WBC (0-5) /hpf Ur Epithelial Cells (0-5) /hpf Urine Bacteria (NONE) Crossmatch Laboratory Results WBC 5.9 K/mm3 (4.0-10.5) 01/31/20 17:27 RBC 2.80 M/mm3 (4.2-5.4) L 01/31/20 17:27 Hgb 7.7 gm/dL (12.5-16.0) L* 01/31/20 17:27 Hct 25.1 % (37.0-47.0) L 01/31/20 17:27 MCV 89.6 fl (78-100) 01/31/20 17: MCH 27.5 pg (27-31) 01/31/20 17: MCHC 30.7 g/dl (32-36) L 01/31/20 17:27 RDW 15.9 % (11.5-14.0) H 01/31/20 17: Plt Count 391 K/mm3 (150-450) 01/31/20 17: MPV 8.9 fl (8-12.5) 01/31/20 17: Immature Gran % (Auto) 0.20 % (0.001-0.429) 01/31/20: Immature Gran # (Auto) 0.01 K/mm3 (0.000-0.0310) 01/31/20 17: Neutrophils % 54.4 % (42-75.0) 01/31/20 17: Lymphocytes % 33.2 % (20-51) 01/31/20 17: Monocytes % 11.1 % (0.0-9) H 01/31/20 17: Eosinophils % 0.8 % (0.0-3.0) 01/31/20: Basophils % 0.3 % (0.0-1.0) 01/31/20: Nucleated RBC % 0.0 k/mm3 (0-1) 01/31/20 17: Neutrophils # 3.2 K/mm3 (1.3-6.0) 01/31/20 17: Lymphocytes # 1.97 k/mm3 (1.5-3.5) 01/31/20 17: Monocytes # 0.7 k/mm3 (0.0-1.0) 01/31/20: Eosinophils # 0.1 k/mm3 (0.0-0.7) 01/31/20: Absolute Basophils 0.0 k/mm3 (0.0-0.1) 01/31/20 17:27 PT 11.5 Seconds (9.1-10.7) H 02/01/20 05:20 INR (Anticoag Therapy) 1.17 INR (0.92-1.08) H 02/01/20 05:20 PTT (E[place]) 24.5 Seconds (24-32) D 02/01/20 05:20 Sodium 145 mmol/L (132-142) H 02/01/20 05:20 Plasma Sodium 145 mmol/L (130-142) H 02/01/20 05:20 Potassium 3.0 mmol/L (3.4-4.6) L D 02/01/20 05:20 Chloride 104 mmol/L (97-106) 02/01/20 05:20 Carbon Dioxide 31.3 mmol/L (24-32.6) 02/01/20 05:20 Anion Gap 12.7 mmol/L (6.8-13.8) 02/01/20 05:20 BUN 2 mg/dL (3-23) L 02/01/20 05:20 Creatinine 0.41 mg/dL (0.4-1.4) 02/01/20 05:20 Est GFR (Non-Af Amer) 169 mL/min (60-130) H D 02/01/20 05:20 BUN/Creatinine Ratio 4.9 (9.0-21.6) L 02/01/20 05:20 Random Glucose 106 mg/dL (70-110) 02/01/20 05:20 Calcium 6.7 mg/dL (7.9-10.9) L 02/01/20 05:20 Calcium Adj for Albumin 7.7 mg/dL (8.4-10.2) L 02/01/20 05:20 Total Bilirubin 0.4 mg/dL (0.0-1.1) 02/01/20 05:20 AST 16 U/L (0-48) 02/01/20 05:20 ALT 9 U/L (19-67) L 02/01/20 05:20 Alkaline Phosphatase 96 U/L (50-170) 02/01/20 05:20 Total Protein 5.7 gm/dL (6.2-8.2) L 02/01/20 05:20 Albumin 2.4 gm/dl (3.4-5.0) L 02/01/20 05:20 Urine Color Brown 01/31/20 17:56 Urine Appearance Cloudy (CLEAR) 01/31/20 17:56 Urine pH 6.5 pH (5.0-7.0) 03/30/20 17:56 Ur Specific [place] 1.025 SP.GR. (1.005-1.010) 01/31/20 17:56 Urine Protein 30 mg/dL (NEGATIVE) H 01/31/20 17:56 Urine Glucose (UA) Negative mg/dL (NEGATIVE) 01/31/20 17:56 Urine Ketones 5 mg/dL (NEGATIVE) 01/31/20 17:56 Urine Blood 250 /ul (NEGATIVE) H 01/31/20 17:56 Urine Nitrate Negative (NEGATIVE) 01/31/20 17:56 Urine Bilirubin 1 mg/dl (NEGATIVE) H 01/31/20 17:56 Urine Ictotest Negative (NEGATIVE) 01/31/20 17:56 Prot Sulfosalicylic Acd 1+ mg/dL (0) 01/31/20 17:56 Urine Urobilinogen Normal EU/dl (NORMAL) 01/31/20 17:56 Ur Leukocyte Esterase 25 /ul (NEGATIVE) H 01/31/20 17:56 Urine RBC >50 /hpf (0-5) H 01/31/20 17:56 Urine WBC 10-25 /hpf (0-5) H 01/31/20 17:56 Ur Epithelial Cells 5-10 /hpf (0-5) H 01/31/20 17:56 Urine Bacteria 1+ (NONE) H 01/31/20 17:56 Urine Culture Comments Culture to follow 01/31/20 17:56 Blood Type A Positive 01/31/20 17:27 Antibody Screen Negative 01/31/20 17:27 Crossmatch See Detail 01/31/20 17:27 Assessment/Plan - Narrative Narrative: Reassess CBC at 10 AM to determine whether more blood is required. Goal is to have her over 10 g hemoglobin. Continue potassium replacement. Medications reconciled and for the most part all were continued. Anticipate discharge this afternoon. - Assessment/Plan (1) Anemia Problem: Acute Qualifiers: Anemia type: unspecified type Qualified Code(s): D64.9 - Anemia, unspecified (2) Hypokalemia Problem: Acute (3) History of tobacco abuse Problem: Chronic (4) History of acute respiratory failure Problem: Resolved (5) Pneumonia Problem: Acute Qualifiers: Pneumonia type: due to unspecified organism Laterality: left Lung location: lower lobe of lung Qualified Code(s): J18.9 - Pneumonia, unspecified organism (6) Shortness of breath Problem: Chronic
[2020-02-01] MEDS ORDERED: POTASSIUM CHLORIDE 10 MEQ TABLET.SA PO ONE (09:58)
[2020-02-01 10:06] LABS: Hematocrit 33.3 % (37.0-47.0); Hemoglobin 10.6 gm/dL (12.5-16.0); Mean Cell Volume 86.5 fl (78-100); Mean Corpuscular Hemoglobin 27.5 pg (27-31); Mean Corpuscular Hgb Conc 31.8 g/dl (32-36); Neutrophil # 4.4 K/mm3 (1.3-6.0); Neutrophil % 61.2 % (42-75.0); Platelet Count 426 K/mm3 (150-450); Red Blood Count 3.85 M/mm3 (4.2-5.4); Red Cell Distribution Width 16.8 % (11.5-14.0); White Blood Count 7.3 K/mm3 (4.0-10.5)
[2020-02-01 11:20] LABS: Iron 12 mcg/dL (35-120); Transferrin Sat. (% Sat.) 8 % (15-55)
[2020-02-01] MEDS ORDERED: POTASSIUM CHLORIDE 10 MEQ TABLET.SA ONE (12:10)
--- NOTE | 2020-02-01 16:13 | DS ---
(1) Anemia Problem: Acute Qualifiers: Anemia type: other cause Other causes of anemia: acute posthemorrhagic Qualified Code(s): D62 - Acute posthemorrhagic anemia (2) Hypokalemia Problem: Acute (3) History of tobacco abuse Problem: Chronic (4) History of acute respiratory failure Problem: Resolved (5) Pneumonia Problem: Acute Qualifiers: Pneumonia type: due to unspecified organism Laterality: left Lung location: lower lobe of lung Qualified Code(s): J18.9 - Pneumonia, unspecified organism (6) Shortness of breath Problem: Chronic (7) History of gross hematuria Problem: Acute Date of Discharge:: 02/01/20 Hospital Course: Leslie Colón is a 59-year-old female patient with advanced COPD that was admitted for weakness and shortness of breath. Her hemoglobin was 7.7 g. The cause of her anemia is thought to be hematuria from etiology yet to be determined. The hemoglobin has improved from admission to 7.7 g to 10.3 g. Potassium has improved from 2.3-3.0 and she has been given 20 mEq of potassium p.o. this morning. The shortness of breath is better. She is dyspneic with ambulation. She does feel like she needs to stay on her oxygen. Her oxygen saturations have been okay. Chest x-ray revealed a left lower lobe or lingular infiltrate. It is faint and I think is residual from the admission she had a [place] last week. There is a small pleural effusion in the left lung. The lungs are hyperinflated but otherwise there is no acute findings. I believe that the combination of her severe COPD and her anemia is what caused her to be so dyspneic. She has excellent renal function. She has a history of hematuria although none recently. The nidus of the bleeding has not been yet determined. Because she is on anticoagulation therapy to treat the pulmonary emboli it may be several months before she can have a cystoscopy. Since she does not seem to be actively bleeding at this time and elective procedures are not being done at this time I will not refer her to urology just yet. Procedures Performed: see notes below List Procedures: 2 units of packed red blood cells infused Health Concerns: Gross hematuria that is probably caused her anemia Results and Findings: Pending Mircobiology Results 01/31/20 18:00 Urine,Clean Catch Urine Culture - Preliminary No Growth Lab Pending Results 01/31/20 17:27: WBC 5.9, RBC 2.80 L, Hgb 7.7 L*, Hct 25.1 L, MCV 89.6, MCH 27.5, MCHC 30.7 L, RDW 15.9 H, Plt Count 391, MPV 8.9, Immature Gran % (Auto) 0.20, Immature Gran # (Auto) 0.01, Neutrophils % 54.4, Lymphocytes % 33.2, Monocytes % 11.1 H, Eosinophils % 0.8, Basophils % 0.3, Nucleated RBC % 0.0, Neutrophils # 3.2, Lymphocytes # 1.97, Monocytes # 0.7, Eosinophils # 0.1, Absolute Basophils 0.0 01/31/20 17:27: Sodium 147 H, Plasma Sodium 147 H, Potassium 2.3 L* D, Chloride 107 H, Carbon Dioxide 32.3, Anion Gap 10.0, BUN 2 L D, Creatinine 0.53, Est GFR (Non-Af Amer) 125 D, BUN/Creatinine Ratio 3.8 L, Random Glucose 102, Calcium 6.6 L, Calcium Adj for Albumin 7.6 L, Total Bilirubin 0.1, AST 12, ALT 10 L, Alkaline Phosphatase 90, Total Protein 5.6 L, Albumin 2.3 L 01/31/20 17:27: Blood Type A Positive, Antibody Screen Negative, Crossmatch See Detail 01/31/20 17:27: PT 11.8 H, INR (Anticoag Therapy) 1.20 H 01/31/20 17:27: PTT ([place]) 31.0 01/31/20 17:27: Iron 12 L, TIBC 148 L, Transferrin % Sat 8 L 01/31/20 17:56: Urine Color Brown, Urine Appearance Cloudy, Urine pH 6.5, Ur Specific [place] 1.025, Urine Protein 30 H, Urine Glucose (UA) Negative, Urine Ketones 5, Urine Blood 250 H, Urine Nitrate Negative, Urine Bilirubin 1 H, Urine Ictotest Negative, Prot Sulfosalicylic Acd 1+, Urine Urobilinogen Normal, Ur Leukocyte Esterase 25 H, Urine RBC >50 H, Urine WBC 10-25 H, Ur Epithelial Cells 5-10 H, Urine Bacteria 1+ H, Urine Culture Comments Culture to follow 02/01/20 05:20: Sodium 145 H, Plasma Sodium 145 H, Potassium 3.0 L D, Chloride 104, Carbon Dioxide 31.3, Anion Gap 12.7, BUN 2 L, Creatinine 0.41, Est GFR (Non-Af Amer) 169 H D, BUN/Creatinine Ratio 4.9 L, Random Glucose 106, Calcium 6.7 L, Calcium Adj for Albumin 7.7 L, Total Bilirubin 0.4, AST 16, ALT 9 L, Alkaline Phosphatase 96, Total Protein 5.7 L, Albumin 2.4 L 02/01/20 05:20: PT 11.5 H, INR (Anticoag Therapy) 1.17 H, PTT ([place]) 24.5 D 02/01/20 09:52: WBC 7.3 D, RBC 3.85 L, Hgb 10.6 L, Hct 33.3 L, MCV 86.5, MCH 27.5, MCHC 31.8 L, RDW 16.8 H, Plt Count 426, MPV 9.0, Immature Gran % (Auto) 0.40, Immature Gran # (Auto) 0.03, Neutrophils % 61.2, Lymphocytes % 27.0, Monocytes % 10.6 H, Eosinophils % 0.4, Basophils % 0.4, Nucleated RBC % 0.0, Neutrophils # 4.4, Lymphocytes # 1.96, Monocytes # 0.8, Eosinophils # 0.0, Absolute Basophils 0.0 02/01/20 09:55: Absolute Retic 0.1010, Percent Retic 2.6 H, Immature Retic Fraction 30.7 H, Retic Hgb Content 22.3 L Disposition: Home self-care Condition: Stable Face to Face Encounter completed per CMS Guidelines: No Discharge Activity: Activity as tolerated Discharge Diet: General/regular food Referrals: Rogelio Hussein DO [Primary Care Provider] - Additional Patient Instructions (free text): Repeat CBC in 2 weeks Repeat BMP in [address] Hussein in the office in 2 weeks She is to report any gross hematuria events to me. Complete Home Medications List: Complete Home Medication List: Acetaminophen [Tylenol] 325 mg PO Q6H PRN tab 09/01/18 albuterol sulfate 2.5 mg/0.5 mL solution for nebulization 2.5 mg INHALATION Q4H PRN #60 ea 05/13/19 eszopiclone 2 mg tablet 2 mg PO HS #30 tab 10/07/19 atorvastatin 40 mg tablet 40 mg PO QPM #30 tab 11/23/19 LORazepam [Ativan] 0.5 mg PO TID PRN #90 tab 12/05/19 Durable Medical Equipment See Rx Instructions .ROUTE .MEDSUPPLY #1 ea 01/26/20 apixaban 5 mg tablet 5 mg PO BID 01/26/20 cariprazine 3 mg capsule 3 mg PO DAILY 01/26/20 metformin 1,000 mg tablet 1,000 mg PO BID 01/26/20 metoprolol tartrate 25 mg tablet 25 mg PO BID 01/26/20 ondansetron 4 mg disintegrating tablet 4 mg PO Q6H PRN #20 tab 01/26/20 pantoprazole 40 mg tablet,delayed release 40 mg PO DAILY 01/26/20 tamsulosin 0.4 mg capsule 0.4 mg PO HS 01/26/20 tramadol 50 mg tablet 50 mg PO Q8H PRN 01/26/20 urea 20 % topical cream 1 applic TP BID PRN 01/26/20 vortioxetine 20 mg tablet 20 mg PO DAILY 01/26/20 Albuterol Sulfate [Albuterol Sulfate Hfa] 2 puff INHALATION Q4H PRN 01/31/20 Budesonide/Formoterol Fumarate [Symbicort 160-4.5 Mcg Inhaler] 2 puff INH BID 01/31/20 Tiotropium White [Spiriva] 1 cap INH DAILY 01/31/20 Potassium Chloride [Klor-Con M20] 20 meq PO DAILY #30 tab.er.prt 02/01/20
[2020-02-01 17:10] VITALS: BP 151/65
[2020-02-01] MEDS: ROSUVASTATIN CALCIUM 20 MG TABLET PO SCH (17:13)
[2020-02-01] MEDS ORDERED: ESZOPICLONE 2 MG PO SCH (21:00)
[2020-02-01] MEDS ORDERED: APIXABAN 5 MG TABLET PO SCH (21:00)
[2020-02-01] MEDS ORDERED: TAMSULOSIN HCL 0.4 MG CAP.SR.24H PO SCH (21:00)
== END 2020-02-01 17:05 | disposition home or self-care (01) ==
LOC: ER 16:14 → MS 16:14
PROVIDERS: ADMIT Family Medicine; ATTEND Family Medicine
DX: E11.9 Type 2 diabetes mellitus without complications; Z87.891 Personal history of nicotine dependence; E87.6 Hypokalemia; J44.9 Chronic obstructive pulmonary disease, unspecified; R31.0 Gross hematuria; D62 Acute posthemorrhagic anemia
CPT/HCPCS: 36415; 36430; 71020; 71046; 80053; 81001; 83540; 83550; 85025; 85045; 85610; 85730; 86850; 87086; 93005; 96365; 99284; 99285; G0378; P9016